=== PATIENT | male | born 1960 | race Caucasian/White ===

== ENCOUNTER 2018-01-11 18:40 | Emergency (ER) | payer MEDICARE, MEDICAID ==
[2018-01-11] MEDS ORDERED: Polymyx/Trimethoprim OPTH* 10 ML BTL BOTH EYES ONE (21:19)
--- NOTE | 2018-01-11 21:25 | UC ---
Eye Complaint HPI - HPI Summary HPI Summary: Bilateral eye redness and clear drainage ---customer care voice consultant that is with patient is unsure of time of onset - History of Current Complaint Stated Complaint: BILATERAL EYE ISSUE Time Seen by Provider: 01/11/18 20:58 Hx Obtained From: Patient, Family/Kinder Teacher Timing: Constant Severity Currently: Mild Location of Injury: Conjunctiva Associated Signs And Symptoms: Positive: Drainage (Clear) - Allergies/Home Medications Allergies/Adverse Reactions: Allergies Allergy/AdvReac Type Severity Reaction Status Date / Time No Known Allergies Allergy Verified 01/11/18 21:02 Home Medications: Home Medications Benztropine TAB* [Cogentin TAB*] 1 mg PO BID 01/11/18 [History Confirmed ] Divalproex Sodium [Depakote] 250 mg PO BID 01/11/18 [History Confirmed 01/11/18] Loperamide CAP* [Imodium CAP*] 0 mg PO SEE INSTRUCTIONS PRN 01/11/18 [History Confirmed 01/11/18] Loratadine 10 mg PO DAILY 01/11/18 [History Confirmed 01/11/18] Quetiapine Fumarate [Quetiapine 100 mg] 100 mg PO BEDTIME 01/11/18 [History Confirmed 01/11/18] PMH/Surg Hx/FS Hx/Imm Hx Previously Healthy: No GI/ History: Gastroesophageal Reflux Psychological History: Schizophrenia - Surgical History Surgical History: Yes Surgery Procedure, Year, and Place: Root canal - Family History Known Family History: Positive: Unknown - pt has MR and pyschiatric issues- unsure of his FHx - Social History Occupation: Disabled Lives: Long-Term Alcohol Use: None Substance Use Type: None Smoking Status (MU): Never Smoked Tobacco - Immunization History Most Recent Influenza Vaccination: 05/2015 Review of Systems Constitutional: Negative Skin: Negative Eyes: Negative, Eye Redness ENT: Negative Respiratory: Negative Cardiovascular: Negative Gastrointestinal: Negative Genitourinary: Negative Motor: Negative Neurovascular: Negative Musculoskeletal: Negative Neurological: Negative Psychological: Negative Is Patient Immunocompromised?: No All Other Systems Reviewed And Are Negative: Yes Physical Exam Triage Information Reviewed: Yes Appearance: No Pain Distress, Well-Nourished, Ill-Appearing - appears older than stated age Vital Signs Reviewed: Yes Eye Exam: Normal Eyes: Positive: Conjunctiva Inflamed, Discharge ENT Exam: Normal ENT: Positive: Normal ENT inspection, Hearing grossly normal. Negative: Nasal congestion, Trismus, Muffled voice, Hoarse voice Dental Exam: Normal Neck exam: Normal Neck: Positive: Supple, Nontender Respiratory Exam: Normal Respiratory: Positive: Chest non-tender, No respiratory distress, No accessory muscle use Cardiovascular Exam: Normal Cardiovascular: Positive: RRR, Pulses Normal, Brisk Capillary Refill Musculoskeletal Exam: Normal Musculoskeletal: Positive: Strength Intact, ROM Intact, No Edema Neurological Exam: Normal Neurological: Positive: Alert, Muscle Tone Normal Psychological Exam: Normal Skin Exam: Normal Eye Complaint Course/Dx - Course Course Of Treatment: eye drops for 5 days, recheck prn - Differential Dx/Diagnosis Provider Diagnoses: bilateral conjuctivitis Discharge - Sign-Out/Discharge Documenting (check all that apply): Discharge/Admit/Transfer - Discharge Plan Condition: Stable Disposition: HOME Patient Education Materials: How to Use Eye Drops (ED), Conjunctivitis (ED) Referrals: Iain Wei PA [Primary Care Provider] - If Needed (Rnot resolved in 5 days or worsens in any way) - Billing Disposition and Condition Condition: STABLE Disposition: Home
[2018-01-11 21:29] VITALS: BP 115/70
== END 2018-01-11 21:45 | disposition home or self-care (01) ==
LOC: UCCORT 18:40
DX: H10.33 Unspecified acute conjunctivitis, bilateral (principal); K21.9 Gastro-esophageal reflux disease without esophagitis; F79 Unspecified intellectual disabilities; F20.9 Schizophrenia, unspecified
CPT/HCPCS: 99212; G0463

== ENCOUNTER 2019-10-07 11:52 | Emergency (ER) | payer MEDICAID, MEDICARE ==
--- OUTSIDE RECORDS SUMMARY | 2019-10-07 13:05 | XMS REPORT | Summary of Care ---
:1960 Author Organization [facility] Address [address] [place] [address] Care Team Providers Name Role Phone Tyler Wei Primary Care Provider Reason for Visit Reason Comments Discharge Follow-up s/p SIGMOID RESECTION Encounter Details Date Type Department Care Team Description 09/30/2019 Office Visit [facility] Car Singh MD Volvulus (Primary Dx) [address] [facility] [address] [facility] [address] Level [address] [facility] Room [address] [place] [id number] [phone] Allergies Active Allergy Reactions Severity Noted Date Comments Other 07/20/2014 peanuts documented as of this encounter (statuses as of 10/04/2019) Medications Medication Sig Dispensed Refills Start Date End Date Status carbidopa-levodopa Take 0.5 tablets by 0 Active (SINEMET) 25-100 MG mouth Four times per tablet daily At 0600, 1000, 1500, 2000 lorazepam (ATIVAN) Take 0.5 mg by 0 Active 0.5 MG tablet mouth Four times daily omeprazole (PRILOSEC) Take 20 mg by mouth 0 Active 20 MG capsule daily. Sennosides (SENNA) Take 2 tablets by 0 Active 8.6 MG TABS tablet mouth nightly. Misc. Devices Use as directed. Rolling walker 1 each 0 10/27/2015 Active (DURABLE MEDICAL EQUIPMENT SEE SIG) DX: R26 MISC S80.0 polyethylene glycol Take 17 g by mouth 0 Active (MIRALAX) packet daily. levocetirizine Take 5 mg by mouth 0 Active (XYZAL) 5 MG tablet every evening. divalproex (DEPAKOTE) Take 1 tablet by 60 tablet 0 12/15/2015 Active 250 MG EC tablet mouth Two times daily before meals. Benztropine Mesylate Take 1 mg by mouth 0 Active 1 MG Oral Tablet Two Times Daily (COGENTIN) QUEtiapine Fumarate Take 50 mg by mouth 0 Active 50 MG Oral Tablet Two Times Daily (SEROquel) QUEtiapine Fumarate Take 100 mg by 0 Active 100 MG Oral Tablet mouth nightly (SEROquel) Famotidine 20 MG Oral Take 20 mg by mouth 0 Active Tablet (PEPCID) Two Times Daily Acetaminophen 500 MG Take 1,000 mg by 0 Active Oral Tablet (TYLENOL) mouth every 6 (six) hours as needed for Pain Ibuprofen 800 MG Oral Take 800 mg by 0 Active Tablet (ADVIL,MOTRIN) mouth every 6 (six) hours as needed for Pain guaiFENesin 100 Take 200 mg by 0 Active MG/5ML Oral Syrup mouth every 4 (ROBITUSSIN) (four) hours as needed for Cough Alum & Mag Take 5 mLs by mouth 0 Active Hydroxide-Simeth every 4 (four) 200-200-20 MG/5ML hours as needed Oral Suspension Doxepin HCl 25 MG Take 25 mg by mouth 0 Active Oral Capsule nightly (SINEQUAN) Magnesium Hydroxide Take 30 mLs by 0 Active 400 MG/5ML Oral mouth every 3 Suspension (MILK OF (three) days as MAGNESIA) needed for Constipation Loperamide HCl 1 Take 6 mg by mouth 0 Active MG/5ML Oral Liquid daily as needed (IMODIUM) for DiarrheaMay give an addition 15ML for each loose stool to follow. Maximum Daily Dose = 60ML Desloratadine 5 MG Take 5 mg by mouth 0 Active Oral Tablet daily (CLARINEX) Aspirin 81 MG Oral Take 81 mg by mouth 0 Active Tablet Delayed daily Release Chlorhexidine Use as directed 15 0 Active Gluconate 0.12 % mLs in the mouth or Mouth/Throat Solution throat daily (PERIDEX) Docusate Sodium 100 Take 100 mg by 0 Active MG Oral Capsule mouth Two Times (COLACE) Daily documented as of this encounter (statuses as of 10/04/2019) Active Problems Problem Noted Date Volvulus 09/13/2019 documented as of this encounter (statuses as of 10/04/2019) Social History Tobacco Use Types Packs/Day Years Used Date Never Smoker Smokeless Tobacco: Never Used Alcohol Use Drinks/Week oz/Week Comments No Sex Assigned at Date Recorded Not on file Job Start Date Occupation Industry Not on file Not on file Not on file Travel History Travel Start Travel End No recent travel history available. documented as of this encounter Last Filed Vital Signs Vital Sign Reading Time Taken Comments Blood Pressure 101/67 09/30/2019 9:13 AM EST Pulse 92 09/30/2019 9:13 AM EST Temperature 36.8 09/30/2019 9:13 AM C (98.3 EST F) Respiratory Rate 18 09/30/2019 9:13 AM EST Oxygen Saturation 94% 09/30/2019 9:13 AM EST Inhaled Oxygen Concentration - - Weight 72.9 kg (160 lb 12.8 oz) 09/30/2019 9:13 AM EST Height 179.1 cm (5' 10.5") 09/30/2019 9:13 AM EST Body Mass Index 22.75 09/30/2019 9:13 AM EST documented in this encounter Progress Notes Car Singh MD - 09/30/2019 8:45 AM ESTSee resident's note for details. I saw and evaluated the patient with the resident and agree with the resident's findings and plan as documented in the residents note. Claudia Figueroa MD - 09/30/2019 8:45 AM EST Subjective: Patient ID: Epifanio Navarro is a 58 y.o. male with history of schizophrenia now s/ p sigmoid resection for sigmoid volvulus 09/14/19. Patient states he has been doing well. He denies fever, chills, shortness of breath, chest pain, nausea, vomiting. He states he is eating well. He denies changes in bowel orbladder habits. HPI Epifanio has a past medical history of Aphagia, Constipation, Explosive personality disorder, and Schizophrenia. Epifanio has Volvulus on their problem list. Epifanio has a past surgical history that includes pr colonoscopy flx dx w/collj spec when pfrmd (N/A, 09/13/2019). His family history is not on file. Epifanio reports that he has never smoked. He has never used smokeless tobacco. He reports that he doesnot drink alcohol or use drugs. Epifanio has a current medication list which includes the following prescription(s) : acetaminophen, alum& mag hydroxide-simeth, aspirin, benztropine, carbidopa -levodopa, chlorhexidine, divalproex, docusate sodium, doxepin, famotidine, guaifenesin, ibuprofen, levocetirizine, loperamide, lorazepam, durable medical equipment see sig, polyethylene glycol, quetiapine, senna, desloratadine, magnesium hydroxide, omeprazole, and quetiapine. Epifanio is allergic to other. Review of Systems Constitutional: Negative for activity change, appetite change, chills, diaphoresis, fatigue, fever and unexpected weight change. HENT: Negative for trouble swallowing and voice change. Eyes: Negative for visual disturbance. Respiratory: Negative for cough and shortness of breath. Cardiovascular: Negative for chest pain. Gastrointestinal: Negative for abdominal distention, abdominal pain, constipation, diarrhea, nausea and vomiting. Genitourinary: Negative for decreased urine volume and difficulty urinating. Skin: Negative for wound. Neurological: Negative for dizziness and weakness. Objective: Vitals: 09/30/19 0913 BP: 101/67 Pulse: 92 Resp: 18 Temp: 36.8 C (98.3 F) SpO2: 94% Physical Exam Vitals signs and nursing note reviewed. Constitutional: General: He is not in acute distress. Appearance: Normal appearance. He is normal weight. He is not ill-appearing, toxic-appearing or diaphoretic. HENT: Head: Normocephalic and atraumatic. Nose: Nose normal. Mouth/Throat: Mouth: Mucous membranes are moist. Pharynx: Oropharynx is clear. Eyes: Extraocular Movements: Extraocular movements intact. Conjunctiva/sclera: Conjunctivae normal. Pupils: Pupils are equal, round, and reactive to light. Neck: Musculoskeletal: Normal range of motion and neck supple. Cardiovascular: Rate and Rhythm: Normal rate and regular rhythm. Pulmonary: Effort: Pulmonary effort is normal. No respiratory distress. Abdominal: General: Abdomen is flat. Bowel sounds are normal. There is no distension. Palpations: There is no mass. Tenderness: There is no abdominal tenderness. There is no guarding or rebound. Hernia: No hernia is present. Musculoskeletal: Normal range of motion. Skin: General: Skin is warm and dry. Neurological: General: No focal deficit present. Mental Status: He is alert. Mental status is at baseline. Psychiatric: Mood and Affect: Mood normal. Pathology: COLON, SIGMOID, EXCISION: FOCAL TRANSMURAL HEMORRHAGE AND CHRONIC INFLAMMATION, CONSISTENT WITH VOLVULUS. MARGINS VIABLE. LYMPH NODES (8), PERICOLONIC, EXCISION: NO SIGNIFICANT PATHOLOGIC CHANGES. Assessment: Epifanio Navarro is a 58 y.o. male with schizophrenia now s/p sigmoid resection due to sigmoid volvulus on 09/14/19, doing well Plan: Diogenes removed at visit Will plan for colonoscopy in 2 months. Prep (GoLytely) prior to colonoscopy Patient seen and discussed with Dr. Samantha Smart M.D. PGY-3 | Department of Surgery [phone] documented in this encounter Plan of Treatment Health Maintenance Due Date Last Done Comments Hepatitis C Screening (B. 1960 [id number]) MMR Vaccines (1 of 1 - 1961 Standard series) Varicella Vaccines (1 of 2 - 1961 2-dose childhood series) DTaP,Tdap,and Td Vaccines (1 1969 - Tdap) HIV Screening 1975 Influenza Vaccine 05/21/2019 Pneumococcal Vaccine: 65+ 2027 Years (1 of 2 - PCV13) Colon Cancer Screening 10 yrs 09/13/2029 09/13/2019, 09/13/2019 HIB Vaccines Aged Out No longer eligible based on patient's age to complete this topic Hepatitis A Vaccines Aged Out No longer eligible based on patient's age to complete this topic Hepatitis B Vaccines Aged Out No longer eligible based on patient's age to complete this topic IPV Vaccines Aged Out No longer eligible based on patient's age to complete this topic Pneumococcal Vaccine: Aged Out No longer eligible based Pediatrics (0 to 5 Years) and on patient's age to At-Risk Patients (6 to 64 complete this topic Years) documented as of this encounter Results Not on filedocumented in this encounter Visit Diagnoses Diagnosis Volvulus - Primary documented in this encounter
--- OUTSIDE RECORDS SUMMARY | 2019-10-07 13:05 | XMS REPORT | Summary of Care ---
:1960 Author Organization [facility] Address [address] [place] [address] Care Team Providers Name Role Phone Tyler Wei Primary Care Provider Reason for Visit Auth/Cert Status Reason Specialty Diagnoses / Procedures Referred By Contact Referred To Contact Diagnoses Sigmoid volvulus needing colonic decompression. Volvulus Encounter Details Date Type Department Care Team Description 09/13/2019 - Hospital Encounter [id number] SURGERY/TRAUMA Sebastian Kimbrough MD [address] [facility] 2nd Floor [place], [place] [id number] 09/16/2019 Jac Coy MD [address] [place] [address] [address] [place] [address] Allergies Active Allergy Reactions Severity Noted Date Comments Other 07/20/2014 peanuts documented as of this encounter (statuses as of 09/16/2019) Medications Medication Sig Dispensed Refills Start End Date Status Date carbidopa-levodopa Take 0.5 tablets 0 Active (SINEMET) 25-100 by mouth Four MG per tablet times daily At 0600, 1000, 1500, 2000 lorazepam (ATIVAN) Take 0.5 mg by 0 Active 0.5 MG tablet mouth Four times daily omeprazole Take 20 mg by 0 Active (PRILOSEC) 20 MG mouth daily. capsule Sennosides (SENNA) Take 2 tablets 0 Active 8.6 MG TABS tablet by mouth nightly. Misc. Devices Use as directed. Rolling walker 1 each 0 Active (DURABLE MEDICAL 6 EQUIPMENT SEE SIG) DX: R26 MISC S80.0 polyethylene Take 17 g by 0 Active glycol (MIRALAX) mouth daily. packet levocetirizine Take 5 mg by 0 Active (XYZAL) 5 MG mouth every tablet evening. divalproex Take 1 tablet by 60 tablet 0 Active (DEPAKOTE) 250 MG mouth Two times 6 EC tablet daily before meals. Benztropine Take 1 mg by 0 Active Mesylate 1 MG Oral mouth Two Times Tablet (COGENTIN) Daily QUEtiapine Take 50 mg by 0 Active Fumarate 50 MG mouth Two Times Oral Tablet Daily (SEROquel) QUEtiapine Take 100 mg by 0 Active Fumarate 100 MG mouth nightly Oral Tablet (SEROquel) Famotidine 20 MG Take 20 mg by 0 Active Oral Tablet mouth Two Times (PEPCID) Daily Acetaminophen 500 Take 1,000 mg by 0 Active MG Oral Tablet mouth every 6 (TYLENOL) (six) hours as needed for Pain Ibuprofen 800 MG Take 800 mg by 0 Active Oral Tablet mouth every 6 (ADVIL,MOTRIN) (six) hours as needed for Pain guaiFENesin 100 Take 200 mg by 0 Active MG/5ML Oral Syrup mouth every 4 (ROBITUSSIN) (four) hours as needed for Cough Alum & Mag Take 5 mLs by 0 Active Hydroxide-Simeth mouth every 4 200-200-20 MG/5ML (four) hours as Oral Suspension needed Doxepin HCl 25 MG Take 25 mg by 0 Active Oral Capsule mouth nightly (SINEQUAN) Magnesium Take 30 mLs by 0 Active Hydroxide 400 mouth every 3 MG/5ML Oral (three) days as Suspension (MILK needed for OF MAGNESIA) Constipation Loperamide HCl 1 Take 6 mg by 0 Active MG/5ML Oral Liquid mouth daily as (IMODIUM) needed for DiarrheaMay give an addition 15ML for each loose stool to follow. Maximum Daily Dose = 60ML Desloratadine 5 MG Take 5 mg by 0 Active Oral Tablet mouth daily (CLARINEX) Aspirin 81 MG Oral Take 81 mg by 0 Active Tablet Delayed mouth daily Release Chlorhexidine Use as directed 0 Active Gluconate 0.12 % 15 mLs in the Mouth/Throat mouth or throat Solution (PERIDEX) daily Docusate Sodium Take 100 mg by 0 Active 100 MG Oral mouth Two Times Capsule (COLACE) Daily quetiapine Take 300 mg by 0 09/13/19 Discontinued (SEROQUEL) 200 MG mouth every 20 (Medication tablet evening. Reconcilation) lurasidone HCl Take 60 mg by 0 09/13/19 Discontinued (LATUDA) 40 MG mouth daily. 20 (Medication tablet Reconcilation) loratadine Take 10 mg by 0 09/13/19 Discontinued (CLARITIN) 10 MG mouth daily. 20 (Medication tablet Reconcilation) benztropine Take 1/2 tablet 60 tablet 0 09/13/19 Discontinued (COGENTIN) 1 MG PO in AM and 1 6 20 (Medication tablet tablet in PM for Reconcilation) 1 week. Then take 1 tablet in AM and PM. documented as of this encounter (statuses as of 09/16/2019) Active Problems Problem Noted Date Volvulus 09/13/2019 documented as of this encounter (statuses as of 09/16/2019) Social History Tobacco Use Types Packs/Day Years [...] Sign Reading Time Taken Comments Blood Pressure 109/71 09/16/2019 11:36 AM EST Pulse 104 09/16/2019 11:36 AM EST Temperature 36.9 09/16/2019 11:36 AM EST C (98.4 F) Respiratory Rate 18 09/16/2019 11:36 AM EST Oxygen Saturation 93% 09/16/2019 11:36 AM EST Inhaled Oxygen Concentration - - Weight - - Height - - Body Mass Index - - documented in this encounter Discharge Summaries Jac Coy MD - 09/16/2019 9:06 AM EST Discharge Summary Patient Epifanio Navarro Admit Date 09/13/2019 1960 Discharge Date 09/16/2019 PCP Iain Wei PA Discharge Physician Jac Coy MD Primary Discharge Diagnosis: Sigmoid volvulus Secondary Discharge Diagnosis: Volvulus Personality Disorder Wernicke's Aphasia History & Hospital Course Reason for Admission: Abdominal pain Brief history and Hospital Course: Patient was admitted to medicine for a sigmoid volvulus. GI tookpatient to endoscopy and reduced the volvulus. Patient then take to OR by surgery for sigmoid resection. Patient tolerated both procedures very well without complications. Patient now eating and drinking without difficulty. Patient is having bowel movements. He does not have any complaint of pain. Surgery saw this morning and agree patient can be discharged to follow up. Wound care instructions from surgery to be placed. Otherwise patient was continued on his outpatient medications without changes when able to take oral. Patient in stable condition for discharge. Consults: Gastroenterology, Surgery Relevant studies done during this hospitalization: 09/13/2019: Abdominal xray, per radiology, "Dilated loop of sigmoid colon with loss of the haustral folds measuring up to 9.0 cm. This is compatible with history of sigmoid volvulus." 09/13/2019: Abdominal xray, per radiology, "1. Decreased distention of the dilated loop of bowel within the right side of the abdomen since the prior examination. 2. No evidence of recurrence of the sigmoid volvulus." Laboratory Data (Most Recent in Past 3 Days) Lab 09/14/19 0406 09/15/19 0424 09/16/19 0334 WBC 9.5 10.4* 10.9* HGB 12.2* 10.9* 10.9* MCV 91.9 89.0 87.8 PLT 221 199 223 Invalid input(s): BILDIR Lab 09/14/19 0406 09/15/19 0424 09/16/19 0334 NA 143 144 140 K 3.6 3.0* 3.6 CL 105 103 106 BICARBONATE 21* 19* 24 GLUCOSE 66* 65* 106 BUN 11 7 6 CREATININE 0.41* 0.42* 0.32* Discharge Medications Discharge Medications: Medication List Discharge Medications Sig/Dispense acetaminophen 500 MG tablet Commonly known as: TYLENOL Si,000 mg, Oral, Every 6 hours PRN aspirin 81 MG EC tablet Si mg, Oral, Daily Standard benztropine 1 MG tablet Commonly known as: COGENTIN Si mg, Oral, 2 Times Daily carbidopa-levodopa 25-100 MG per tablet Commonly known as: SINEMET Si.5 tablets, Oral, Four Times Daily Standard, At 0600, 1000, 1500, 2000 chlorhexidine 0.12 % solution Commonly known as: PERIDEX Si mLs, Mouth/Throat, Daily Standard desloratadine 5 MG tablet Commonly known as: CLARINEX Si mg, Oral, Daily Standard divalproex 250 MG EC tablet Commonly known as: DEPAKOTE Si mg, Oral, Two times daily before breakfast and dinner Dispense: 60 tablet docusate sodium 100 MG capsule Commonly known as: COLACE Si mg, Oral, 2 Times Daily doxepin 25 MG capsule Commonly known as: SINEQUAN Si mg, Oral, Nightly Durable Medical Equipment see sig Misc Sig: Rolling walker DX: R26 S80.0 Dispense: 1 each famotidine 20 MG tablet Commonly known as: PEPCID Si mg, Oral, 2 Times Daily guaifenesin 100 MG/5ML syrup Commonly known as: ROBITUSSIN Si mg, Oral, Every 4 hours PRN ibuprofen 800 MG tablet Commonly known as: ADVIL,MOTRIN Si mg, Oral, Every 6 hours PRN levocetirizine 5 MG tablet Commonly known as: XYZAL Si mg, Oral, Every evening loperamide 1 MG/5ML solution Commonly known as: IMODIUM Si mg, Oral, Daily PRN, May give an addition 15ML for each loose stool to follow. Maximum Daily Dose = 60ML LORazepam 0.5 MG tablet Commonly known as: ATIVAN Si.5 mg, Oral, Four Times Daily Standard magnesium hydroxide 400 MG/5ML suspension Commonly known as: MILK OF MAGNESIA Si mLs, Oral, Every 72 hours PRN MYLANTA 200-200-20 MG/5ML suspension Generic drug: Alum & Mag Hydroxide-Simeth Si mLs, Oral, Every 4 hours PRN omeprazole 20 MG capsule Commonly known as: PriLOSEC Si mg, Oral, Daily Standard polyethylene glycol packet Commonly known as: MIRALAX Si g, Oral, Daily Standard QUEtiapine 50 MG tablet Commonly known as: SEROquel Si mg, Oral, 2 Times Daily QUEtiapine 100 MG tablet Commonly known as: SEROquel Si mg, Oral, Nightly senna 8.6 MG Tabs tablet Si tablets, Oral, Nightly Allergies:Other Medications, including new medication and medication changes, were discussed with patient and/or family prior to discharge. Follow Up Appointments & Patient Instructions Future Appointments Date Time Provider Department Center 09/30/2019 8:45 AM Car Singh MD [facility] None Discharge planning was discussed with the patient and/or family. Please see discharge instructions provided to the patient OR After-Visit summary on file for additional information. Discharge Recommendations & Disposition Communication/Instructions to the PCP: Yes Pending labs/ tests done in hospital and still need to be followed up after discharge: None Follow-up with PCP: 1 week Referrals: General Surgery Disposition: The patient was hemodynamically stable at the time of discharge. Discharge to: Nursing Home Diet: regular diet Activity: activity as tolerated Code Status: Full Code Condition Upon Discharge: Cognitive: Alert, expressive aphasia (chronic) Functional: Independent Social Supports: Community Signature:Jac Coy MD Date/Time: September 16, 2019 9:06 AM documented in this encounter Discharge Instructions Discharge Instr - Other Jennifer Ayala MD - 09/16/2019 8:56 AM EST Discharge Instructions: Caring for Your Wound Taking proper care of your wound will help it heal. Your healthcare provider or nurse may show you specifically how to clean and dress the wound and how to tell if the wound is healing normally. This sheet will help you remember those guidelines when you are at home. Getting ready Put pets and children in another room, away from your work area. Wash your hands before touching any of your supplies: ? Turn on the water. ? Wet your hands and wrists. ? Use liquid soap from a pump dispenser. Work up a lather. ? Scrub your hands thoroughly. ? Rinse your hands with your fingers pointing toward the drain. ? Dry your hands with a clean cloth or paper towel. Use this towel to turn off the faucet. ? Remember, once you have washed your hands, dont touch anything other than your supplies. Wash your hands again if you touch anything, like furniture or your clothes. Clean your work area: ? Clean washable surfaces with soap and water, and dry with a clean cloth or paper towel. ? Wipe surfaces that are not washable (like fabric or wood) so that they are free of dust.Spreada clean cloth or paper towel over your work surface. ? Move away from the clean surface, if you need to cough or sneeze. Gather your bandage supplies: ? Gauze dressing or other bandage material ? Medical tape ? Disposable gloves Wash your hands again. Dressing the wound Remove the old dressing: ? Put on disposable gloves if youre dressing a wound for someone else or if your wound is infected. ? Pull gently toward the wound to loosen the tape. ? One layer at a time, gently remove the dressing. ? If you have a drain or tube, be careful not to pull on it. ? Look at the dressing. Make sure that you are seeing a decreasing amount of blood, and that the blood is turning into a clear, melecio fluid. ? If your wound has stitches, look for looseones. ? Put the dressing in a plastic bag. Then remove your gloves. Inspect the wound. Look for signs that it isn't healing normally. A wound that isnt healing properly may be dark in color or have white streaks. Dress the wound daily: ? Wash your hands again. ? Clean and dress the wound as you were shown by your healthcare provider or nurse. ? 4x4 gauze, abdominal pad and tape ? Ifyoure dressing a wound for someone else or if your wound is infected, put on a new pair of disposable gloves. ? If you have a drain or tube, be careful not to pull on it. Discard any used materials or trash in a sealed plastic bag before placing in a trash can. Follow-up Make a follow-up appointment, or as directed by your healthcare provider. When to call your healthcare provider Call your healthcare provider right away if you have any of the following: Shaking chills or fever above 100.4F (38C) Bleeding that soaks the dressing Stitches that are pulling away from the wound or pulling apart [place] fluid weeping from the wound Increased drainage from the wound or drainage that is yellow, yellow-green , or smelly Increased swelling, pain, or redness in the skin around the wound A change in the color or sizeof the wound Increased fatigue Loss of appetite Date Last Reviewed: 02/18/201719999650-1852 [employer]. [address] [place] [address], [place] [address]. All rights reserved. This information is not intended as a substitute for professional medical care. Always follow your healthcare professional's instructions. documented in this encounter Progress Notes Carola Duarte RN - 09/16/2019 12:54 PM ESTPt discharged back to long term with aide. Discharge instructions, medication list and follow-up appointments gone over with pt and aide and signed. All questions answered. Pt sent with supplies for dressing changes. PIV access removed, site is CDI. Pt properly dressed for discharge and all belongings sent including own gait belt and Bible. Raheem Wilder MD - 09/15/2019 12:36 PM EST Internal Medicine Inpatient Progress Note Subjective Patient seen and examined at bedside. No acute events overnight. States he is in no pain. States he is not passing gas or had a BM. Denied nausea, or fever. Review of Systems Constitutional: Negative for chills and fever. HENT: Negative for sore throat and trouble swallowing. Eyes: Negative for pain and redness. Respiratory: Negative for chest tightness and shortness of breath. Cardiovascular: Negative for chest pain, palpitations and leg swelling. Gastrointestinal: Negative for abdominal distention, abdominal pain and nausea. Genitourinary: Negative for difficulty urinating, dysuria and hematuria. Skin: Negative for color change and rash. Neurological: Negative for dizziness, weakness and headaches. Objective Temp: [36.2 C-36.9 C] 36.8 C Pulse: [77-97] 87 Resp: [12-18] 15 BP: (92-157)/(49-77) 112/62 SpO2: [92 %-100 %] 93 % O2 Therapy: Room air O2 Flow Rate (L/min): [2 L/min-12 L/min] 2 L/min Intake/Output Summary (Last 24 hours) at 09/15/2019 1236 Last data filed at 09/15/2019 1200 Gross per 24 hour Intake 3863.62 ml Output 2700 ml Net 1163.62 ml I/O last 3 completed shifts: In: 4045.2 [P.O.:840; I.V.:2885.2; Other:20; IV Piggyback:300] Out: 2250 [Urine:2200; Blood:50] I/O this shift: In: 1118.4 [P.O.:180; I.V.:372.2; IV Piggyback:566.2] Out: 450 [Urine:450] Last bowel movement: "several days ago Physical Exam HENT: Nose: Nose normal. Mouth/Throat: Mucous membranes are moist. Oropharynx is clear. Cardiovascular: Normal rate, regular rhythm and normal pulses. Exam reveals no gallop. No murmur heard. Pulmonary/Chest: Effort normal and breath sounds normal. No respiratory distress. He has no wheezes.He has no rales. Abdominal: Bowel sounds are normal. He exhibits no distension and no mass. Wound vac over lower abdomen. No output in collection reservoir. Bandage clean and dry. Musculoskeletal: Right lower leg: No edema. Left lower leg: No edema. Neurological: He is alert. Skin: Skin is warm and dry. Lines, Tubes, Monitors & Restraints Description Still Required? Comments PIV X Yes [] No Total Days of Anti-infective Therapy: 3 Anti-infectives (From admission, onward) Start Dose/Rate Route Frequency Ordered Stop 09/13/19 0330 metroNIDAZOLE (FLAGYL) IVPB 500 mg 500 mg 100 mL/hr over 60 Minutes Intravenous Every 8 hours 09/13/19 0329 09/20/19 0444 09/13/19 0330 ciprofloxacin in D5W (CIPRO) IVPB 200 mg 200 mg 100 mL/hr over 60 Minutes Intravenous Every 12 hours 09/13/19 0329 09/16/19 0444 Laboratory Data (Most Recent in Past 3 Days) Lab 09/13/19 0239 09/14/19 0406 09/15/19 0424 WBC 13.4* 9.5 10.4* HGB 13.4* 12.2* 10.9* HCT 38.8* 36.3* 30.9* MCV 88.7 91.9 89.0 PLT 267 221 199 Lab 09/13/19 0612 09/14/19 0406 09/15/19 0424 NA 139 143 144 K 3.6 3.6 3.0* CL 102 105 103 BICARBONATE 23 21* 19* GLUCOSE 122 66* 65* BUN 12 11 7 CREATININE 0.41* 0.41* 0.42* Lab 09/15/19 0424 CALCIUM 7.3* Lab 09/13/19 0239 09/14/19 0406 09/15/19 0424 NEUTOPHILPCT 81 76 78 LYMPHOPCT 10 14 12 MONOPCT 8 7 8 EOSPCT 1 2 2 Lab 09/13/19 0239 PROT 6.4 ALBUMIN 3.6 AST 26 ALT 22 TBILI 0.4 ALKPHOS 71 Lab 09/13/19 0239 INR 1.09 No new imaging Assessment/Plan Mr. Epifanio Navarro is a 58 y.o. male with a past medical history significant for schizophrenia, personality disorder, and Wernicke's aphasia who presented to [facility] with c/o abdominal pain. CT absignificant for sigmoid volvulus. S/t sigmoidectomy 09/14. #Sigmoid Volvulus -present on admission -CT ab significant for: dilated colon with large amount of fluid and debris throughout the colon with an abrupt transition in the region of the sigmoid colon consistent with sigmoid volvulus -will obtain labs, trend lactic acid q4h -c/w cipro + metronidazole - GI decompressed on 09/13 - surgery did sigmoidectomy with primary anastomosis 09/14 - gabapentin and tylenol for pain - will contact surgery concerning when to restart diet. #Personality Disorder -present on admission -pt has documented hx of agression -c/w depakote, quetiapine #Wernicke's Aphasia -present at baseline -A&O x 1 -will continue with thiamine 250 mg x 5 days DVT Prophylaxis: low molecular weight heparin GI Prophylaxis: Not Indicated Functional Status: moderately impaired Code Status: Full Code Disposition: Plan discharge to: Nursing Home Estimated Discharge Date: tbd The patient was discussed with Jac Coy MD who agrees with the assessment and plan as noted above. Signature: Raheem Martinez MD Date/Time: September 15, 2019 12:36 PM Associated attestation - Jac Coy MD - 09/15/2019 4:49 PM ESTAttending Addendum: I personally interviewed, examined, and completely evaluated the patient and agree with the clinicalfindings and have discussed the plan for Epifanio Navarro with the resident. I have reviewed their note andagree with the findings and plan as documented for Epifanio Navarro. Overall amount of data reviewed, levelof risk, complexity and medical decision making is: low. Awaiting surgical recommendations regarding further care. Jac Coy MD Department of Medicine 09/15/2019 4:49 PM Elvie Sam, - 09/14/2019 8:00 PM EST Surgery Post Op Check S: Patient awake and alert in bed. Denies any pain. Ambulating: - Voiding: mcmanus in place Flatus: - BM:- Tolerating PO: NPO Pain Control:+ ROS: Fevers: - Chills:- Nausea:- Vomiting:- Chest Pain:- Shortness of Breath:- Abdominal Pain:- O: Visit Vitals BP 111/67 (BP Location: Right arm, Patient Position: Sitting) Pulse 95 Temp 36.9 C (Oral) Resp 16 SpO2 93% General: NAD AOx4 Heart: RRR no MRG Lungs: CTAB Abdomen: soft/ non tender/ non distended +Bowel sounds. Prevena in place to suction, c/d/i. Extremities warm well perfused, no clubbing cyanosis edema Labs: CBC: Lab Results Component Value Date WBC 9.5 09/14/2019 RBC 3.95 (L) 09/14/2019 HGB 12.2 (L) 09/14/2019 HCT 36.3 (L) 09/14/2019 PLT 221 09/14/2019 BMP: Lab Results Component Value Date NA 143 09/14/2019 K 3.6 09/14/2019 CL 105 09/14/2019 BICARBONATE 21 (L) 09/14/2019 GLUCOSE 66 (L) 09/14/2019 BUN 11 09/14/2019 CREATININE 0.41 (L) 09/14/2019 BCR 28 09/14/2019 GFRAA >90 09/14/2019 GFRNONAA >90 09/14/2019 A: Epifanio Navarro is a 58 y.o. male with sigmoid volvulus s/p sigmoid resection and primary anastomosis POD # 0 doing well P: 1. Pain control: gabapentin, tylenol 2. ERAS Post Op Care Elvie Sam PGY-1 Manuel Hammonds MD PGY-I Jac Rosales MD - 09/14/2019 3:03 PM EST Internal Medicine Inpatient Progress Note Subjective Patient seen and examined, chart reviewed. Doing well, no acute issues overnight. Surgery planning for OR today. Patient is pleasant and seems comfortable but has expressive aphasia at baseline. Review of Systems Unable to perform ROS: Other (Wernike's. Patient denies all complaints but inconsistent.) Objective Temp: [36.3 C-36.9 C] 36.9 C Pulse: [68-99] 68 Resp: [16-17] 16 BP: (126-150)/(68-88) 150/74 SpO2: [95 %-100 %] 100 % O2 Therapy: Oxygen O2 Flow Rate (L/min): [4 L/min] 4 L/min Intake/Output Summary (Last 24 hours) at 09/14/2019 1503 Last data filed at 09/14/2019 1423 Gross per 24 hour Intake 6412.16 ml Output 1250 ml Net 5162.16 ml I/O last 3 completed shifts: In: 6412.2 [P.O.:2960; I.V.:3030; Other:40; IV Piggyback:382.2] Out: 1250 [Urine:1250] No intake/output data recorded. Last bowel movement: Today. Physical Exam Constitutional: Non-toxic appearance. He appears ill. No distress. Pt laying in bed, NAD. Aphasic at baseline but able to answer some questions. HENT: Head: Normocephalic and atraumatic. Nose: No rhinorrhea or congestion. Mouth/Throat: Mucous membranes are moist. No posterior oropharyngeal erythema. Oropharynx is clear. Eyes: No scleral icterus. Cardiovascular: Regular rhythm and normal heart sounds. Tachycardia present. Exam reveals no friction rub. No murmur heard. Pulmonary/Chest: Effort normal. No respiratory distress. He has no wheezes. He has no rhonchi. He has no rales. He exhibits no tenderness. Abdominal: Normal appearance. He exhibits distension (Mild.). He exhibits no mass. There is abdominal tenderness (Improved.). There is no rebound and no guarding. Diminished bowel sounds Musculoskeletal: General: No tenderness. Right lower leg: No edema. Left lower leg: No edema. Neurological: He is alert. Pt is A&O x 1 Skin: Skin is warm. No lesion and no rash noted. He is not diaphoretic. No jaundice. Psychiatric: His behavior is normal. Mood normal. Lines, Tubes, Monitors & Restraints Description Still Required? Comments PIV [] Yes [] No Mcmanus [] Yes [] No Total Days of Anti-infective Therapy: 2 Anti-infectives (From admission, onward) Start Dose/Rate Route Frequency Ordered Stop 09/14/19 1204 ceFAZolin (ANCEF) IVPB 2 g in dextrose (premix) 2 g 200 mL/hr over 30 Minutes Intravenous Every 4 hours 09/14/19 1204 09/14/19201309/13/19 0330 [MAR Hold] metroNIDAZOLE (FLAGYL) IVPB 500 mg (MAR Hold since 09/14/2019 at 1155. Reason: Unreviewed Transfer Orders.) 500 mg 100 mL/hr over 60 Minutes Intravenous Every 8 hours 09/13/19 0329 09/20/19 0444 09/13/19 0330 [MAR Hold] ciprofloxacin in D5W (CIPRO) IVPB 200 mg (MAR Hold since 09/14/2019 at 1155. Reason: Unreviewed Transfer Orders.) 200 mg 100 mL/hr over 60 Minutes Intravenous Every 12 hours 09/13/19 0329 09/16/19 0444 Laboratory Data (Most Recent in Past 3 Days) Lab 09/13/19 0239 09/14/19 0406 WBC 13.4* 9.5 HGB 13.4* 12.2* HCT 38.8* 36.3* MCV 88.7 91.9 PLT 267 221 Lab 09/13/19 0239 09/13/19 0612 09/14/19 0406 NA 134* 139 143 K 3.4 3.6 3.6 CL 100 102 105 BICARBONATE 24 23 21* GLUCOSE 113 122 66* BUN 12 12 11 CREATININE 0.42* 0.41* 0.41* Lab 09/14/19 0406 CALCIUM 7.5* Lab 09/13/19 0239 09/14/19 0406 NEUTOPHILPCT 81 76 LYMPHOPCT 10 14 MONOPCT 8 7 EOSPCT 1 2 Lab 09/13/19 0239 PROT 6.4 ALBUMIN 3.6 AST 26 ALT 22 TBILI 0.4 ALKPHOS 71 Lab 09/13/19 0239 INR 1.09 Assessment/Plan Mr. Epifanio Navarro is a 58 y.o. male who is here for Volvulus, likely resolved, surgery planning sigmoid resection. Down in OR now Wernicke's aphasia, can speak but minimal, unclear answers, inconsistent. Schizophrenia and explosive personality disorder, no change to therapy. Mild, asymptomatic, normocytic anemia, chronic. DVT Prophylaxis: low molecular weight heparin Functional Status: moderately impaired Code Status: Full Code Disposition: Plan discharge to: Nursing Home Estimated Discharge Date: , possibly Monday if all goes well and he improves rapidly after procedure. Signature: Jac Coy MD Date/Time: September 14, 2019 3:03 PM Osmani León MD - 09/14/2019 9:30 AM EST Surgery Progress Note Post Operative Day #: 1 Day Post-Op Procedure: Procedure(s) (LRB): COLONOSCOPY, FLEXIBLE, PROXIMAL TO SPLENIC FLEXURE DX, W/WO SPECIMENS/COLON DECOMP (SEP PROC) (N/A) Length of stay: 1 Interval Present History: No acute events overnight. Patient is s/p endoscopic decompression for sigmoid volvulus on 09/13. Since then, his abdominal exam has been improving. He denies any nausea or vomiting. He endorses improvement of his abdominal pain. He is currently drinking Golytely for plans forsurgery today. He has had multiple episodes of diarrhea as a result. He is otherwise HDS. Intake/Output last 3 shifts: I/O last 3 completed shifts: In: 4278.1 [P.O.:2240; I.V.:1614.2; Other:40; IV Piggyback:383.9] Out: 2100 [Urine:2100] Reason for Mcmanus: Accurate I's and O's Physical Exam Visit Vitals BP 128/73 (BP Location: Right arm, Patient Position: Lying) Pulse 89 Temp 36.8 C Resp 16 SpO2 96% General: Alert, cooperative, no distress Head: Normocephalic, atraumatic Neck: Supple, symmetrical, trachea midline Lungs: Breathing comfortably Heart: RRR Abdomen: Soft, non-tender, non-distended Neuro: Grossly intact, no focal deficits Data Reviewed Recent Labs 09/13/19 0239 09/13/19 0612 09/14/19 0406 WBC 13.4* -- 9.5 HGB 13.4* -- 12.2* HCT 38.8* -- 36.3* PLT 267 -- 221 INR 1.09 -- -- NA 134* 139 143 K 3.4 3.6 3.6 CL 100 102 105 BICARBONATE 24 23 21* BUN 12 12 11 CREATININE 0.42* 0.41* 0.41* GLUCOSE 113 122 66* CALCIUM 8.5* 7.8* 7.5* Assessment and Plan: 58M with a PMH of Schizophrenia and Wernicke's aphasia who was admitted for sigmoid volvulus. He is POD#1 s/p endoscopic decompression. His abdominal exam has significantly improved. He is HDS with a leukocytosis that is trending down to 9.5 today. He will need surgical correction (sigmoidectomy), which will likely be attempted today. Plan: -Plans for tentative OR today -Pain control -IV hydration -Continue ERAS protocol Patient was seen and discussed with Dr. Jones, surgery attending. Osmani Cassidy MD General Surgery PGY-2 Car Pulido MD - 09/14/2019 9:15 AM EST Surgery Progress Note Hospital Day #: 1 Post Operative Day #: 1 Day Post-Op Procedure: Procedure(s) (LRB): COLONOSCOPY, FLEXIBLE, PROXIMAL TO SPLENIC FLEXURE DX, W/WO SPECIMENS/COLON DECOMP (SEP PROC) (N/A) Subjective: Patient was transferred from [place] overnight on night with concerns for sigmoid volvulus, yesterday he underwent endoscopic decompression by GI, and abdominal XR this morning shows significantly decrease in colon distention, with no recurrence of sigmoid volvulus. Heavy stool burden also seems to have improved. He started GoLytely overnight and has taken about half. He has hadabout 4 medium sized watery brown bowel movements. This morning he is sitting up comfortably and hasno complaints. Abdomen is minimally- distended and soft. Afebrile, non-tachycardic. Objective: Temp (24hrs), Av.7 C, Min:36.3 C, Max:37.2 C Vitals: 09/13/19 2100 09/14/19 0045 09/14/19 0544 09/14/19 0700 BP: 142/88 128/73 126/68 128/73 BP Location: Right arm Right arm Right arm Right arm Patient Position: Sitting Sitting Lying Pulse: 99 85 83 89 Resp: 17 17 16 16 Temp: 36.9 C 36.3 C 36.7 C 36.8 C TempSrc: Oral Oral Oral SpO2: 96% 96% 95% 96% I/O last 3 completed shifts: In: 4278.1 [P.O.:2240; I.V.:1614.2; Other:40; IV Piggyback:383.9] Out: 2100 [Urine:2100] No intake/output data recorded. General: pt sitting up comfortably in bed, non-toxic appearing, in no acute distress, non-toxic appearing Heart: non-tachycardic, non-diaphoretic Lungs: breathing is non-labored on room air Abd: minimally distended, soft, non- tender Extremities: warm, well perfused Skin: warm, dry, non-diaphoretic Labs Recent Labs Lab 09/13/19 0239 09/14/19 0406 WBC 13.4* 9.5 RBC 4.37* 3.95* HGB 13.4* 12.2* HCT 38.8* 36.3* PLT 267 221 NEUTOPHILPCT 81 76 MONOPCT 8 7 Recent Labs Lab 09/13/19 0239 09/13/19 0612 09/14/19 0406 NA 134* 139 143 K 3.4 3.6 3.6 CL 100 102 105 BICARBONATE 24 23 21* GLUCOSE 113 122 66* BUN 12 12 11 CREATININE 0.42* 0.41* 0.41* BCR 29 29 28 GFRAA >90 >90 >90 GFRNONAA >90 >90 >90 Recent Labs Lab 09/13/19 0239 INR 1.09 Radiology 09/14 AXR: IMPRESSION: 1. Decreased distention of the dilated loop of bowel within the right side of the abdomen since the prior examination. 2. No evidence of recurrence of the sigmoid volvulus. Patient Active Problem List Diagnosis Volvulus A/P: 58 y.o. male with schizophrenia and Wernicke's aphasia, non verbal at baseline, and lives [facility], who was transferred from [place] with sigmoid volvulus. He is POD#1 s/p endoscopic decompression by GI, with significant improvement. His obstruction symptoms have resolved and XR this morning showed no recurrence of volvulus. Leukocytosis resolved. - abdominal exam and XR consistent with resolution of volvulus without recurrence. Plan for open sigmoidectomy today. - No indication for emergent colectomy, continue bowel prep with Golytely for colon clean out. - Night team was able to reach patient's mother to discuss surgery, attempts made this morning unsuccessful. Will try calling again this morning. Surgical plan to be discussed with Attending Dr. Singh. Shruthi Turner MD General Surgery PGY-5 Pager [phone] The patient presented with a sigmoid volvulus, was scoped eith decompression, the bowel was prepped and he is ready for sigmoid resection. Risks and benefits were dicussed with thepatient and he is willing to proceed. Vinny Curtis MBBS - 2019 9:24 PM ESTPlan for surgery tomorrow, for a sigmoid resection with Dr. Singh Patient to be started on ERAS protocol tonight. Please encourage drinking Golytely. Will get abx now. Plan to get AM abdominal x-ray. FABI Ball General Surgery Resident PGY-4 [facility] Pager: [phone] Raheem Wilder MD - 09/13/2019 4:39 PM ESTPatient seen and examined at bedside. Patient had vovlulus decompression by GI this morning. Follow up abdominal x- ray showed. Dilated loop of sigmoid colon with loss of the haustral folds measuring upto 9.0 cm. This is compatible with history of sigmoid volvulus. Physical exam was improved with less abdominal distention and pain. Surgery recommending slowly prepping with go lytely. If distention or pain worsens may need urgent colectomy. Attempted to contact patient's health care proxy (his mom), but didn't get an answer. Will try againtomorrow. Jac Strange PharmD - 09/13/2019 3:28 PM EST Pharmacy Inpatient Medication History Review Medications Prior to Admission Medication Sig Dispense Refill Last Dose Acetaminophen 500 MG Oral Tablet (TYLENOL) Take 1,000 mg by mouth every 6 (six) hours as needed for Pain Alum & Mag Hydroxide-Simeth 200-200-20 MG/5ML Oral Suspension Take 5 mLs by mouth every 4(four) hours as needed Aspirin 81 MG Oral Tablet Delayed Release Take 81 mg by mouth daily Benztropine Mesylate 1 MG Oral Tablet (COGENTIN) Take 1 mg by mouth Two Times Daily carbidopa-levodopa (SINEMET) 25-100 MG per tablet Take 0.5 tablets by mouth Four times daily At 0600, 1000, 1500, 2000 10/27/2015 at Unknown time Chlorhexidine Gluconate 0.12 % Mouth/Throat Solution (PERIDEX) Use as directed 15 mLs in the mouth or throat daily Desloratadine 5 MG Oral Tablet (CLARINEX) Take 5 mg by mouth daily divalproex (DEPAKOTE) 250 MG EC tablet Take 1 tablet by mouth Two times daily before meals. 60 tablet 0 Docusate Sodium 100 MG Oral Capsule (COLACE) Take 100 mg by mouth Two Times Daily Doxepin HCl 25 MG Oral Capsule (SINEQUAN) Take 25 mg by mouth nightly Famotidine 20 MG Oral Tablet (PEPCID) Take 20 mg by mouth Two Times Daily guaiFENesin 100 MG/5ML Oral Syrup (ROBITUSSIN) Take 200 mg by mouth every 4 (four) hours as needed for Cough Ibuprofen 800 MG Oral Tablet (ADVIL,MOTRIN) Take 800 mg by mouth every 6 (six) hours as needed for Pain levocetirizine (XYZAL) 5 MG tablet Take 5 mg by mouth every evening. Loperamide HCl 1 MG/5ML Oral Liquid (IMODIUM) Take 6 mg by mouth daily as needed for DiarrheaMay give an addition 15ML for each loose stool to follow. Maximum Daily Dose = 60ML lorazepam (ATIVAN) 0.5 MG tablet Take 0.5 mg by mouth Four times daily 12/15/2015 at Unknown time Magnesium Hydroxide 400 MG/5ML Oral Suspension (MILK OF MAGNESIA) Take 30 mLs by mouth every 3 (three) days as needed for Constipation Misc. Devices (DURABLE MEDICAL EQUIPMENT SEE SIG) MISC Use as directed. Eulalia anderson DX: R26 S80.0 1 each 0 omeprazole (PRILOSEC) 20 MG capsule Take 20 mg by mouth daily. 12/15/2015 at Unknowntime polyethylene glycol (MIRALAX) packet Take 17 g by mouth daily. QUEtiapine Fumarate 100 MG Oral Tablet (SEROquel) Take 100 mg by mouth nightly QUEtiapine Fumarate 50 MG Oral Tablet (SEROquel) Take 50 mg by mouth Two Times Daily Sennosides (SENNA) 8.6 MG TABS tablet Take 2 tablets by mouth nightly. 12/14/2015 atUnknown time The following medications have been added: Loperamide, Mylanta, Doxepin, MoM, Tylenol, Ibuprofen, Guaifenesin, Famotidine, Aspirin, Desloratadine, Chlorhexidine, Docusate, Depakote The following medications have been removed: Claritin, Latuda The following medications have been modified: Benztropine, Sinemet, Ativan, Quetiapine The patient takes the following medications differently than prescribed: Medication History Source: [facility] [phone] The above prior to admission medications have been compared to current inpatient orders. Discrepancies: The following home medications are not currently ordered or ordered differently as inpatient: - acetaminophen, aspirin, benztropine, desloratadine, doxepin, famotidine, lorazepam, omeprazole, polyethylene glycol, quetiapine Recommendations: Please consider restarting the home medications listed above if determined to be clinically appropriate. - divalproex was 250 mg bid at home - quetiapine was 100 mg nightly in addition to 50 mg bid at home - benztropine dose was 1 mg bid at home Medication history was completed based on information available during this patient encounter, the list above may not be all inclusive. Thank you, Jac Becerril Pharm.D., BCPS hitAve olivas MD - 09/13/2019 2:52 PM ESTPatient seen and examined after scope. Feels better but denies passing gas. Abdomen mildly distended, soft, non tender. His post procedure AXR shows likely persistent volvulus but the distension hasmarkedly decreased from his previous scan. Recommend slowly prepping with go lytely if he can tolerate it. If distension/abdominal exam worsens may need urgent colectomy. I attempted to call his mother but line was busy. Will try again this evening. Ave Fraire MD Trauma and Acute Care Surgery ajorNimo RN - 09/13/2019 2:14 PM ESTPatient bladder scanned for 1300ml. Dr. Gonzalo Michael notified. stated to straight cath patient. Margaret Yoder RN - 2:09 PM ESTCase Management Screen & Assessment Patient's Name: Epifanio Navarro Date of : 1960 Age: 58 y.o. Gender: male Attending Provider: Jac Coy MD Admitting Diagnosis: Sigmoid volvulus needing colonic decompression. Volvulus Admission Date and Time: 09/13/2019 1:27 AM High Risk Criteria - DIRECTOR INTERNAL CONTROL/Upon Arrival DIRECTOR INTERNAL CONTROL-Type of Residence: skilled nursing DIRECTOR INTERNAL CONTROL- Care Facility Name: [facility] DIRECTOR INTERNAL CONTROL- Home Care Services: No Limited Home Supports/Lives Alone?: No Multi trauma/Critical care admit?: No Head/Spinal cord injury?: No Self pay/No prescription plan?: No Active with homecare?: No Multiple ED visits?: No Related/Unplanned readmission within 30 days?: No Complex/New medical issues: sigmoid volvulus Relevant comorbidities: schizophrenia, personality Disorder, Wernekes aphasia CM Screen Outcome Funeral Pre Need Consultant Screen Outcome: Meets high risk criteria for active human services case manager intervention Important message (Medicare rights) given?: No Intervention: 09/13/19 CM Chart Review Notice of Privacy Practice Signed?: No Date admitting notifed: 09/13/19 DIRECTOR INTERNAL CONTROL: Functional/Environmental Assessment Bathing: Needs assistance Dressing: Independent Toileting: Independent Medication administration: Unable to assess Transfers: Unable to assess Ambulation: Unable to assess Meal preparation: Unable to assess Number of stairs into home: 0 Number of stairs to bathroom: 0 Number of stairs to bedroom: 0 Case Management Review Date CM re-review date needed?: Yes Case Management Review Date: 09/20/19 Discharge Assessment Living Arrangements: Other (Comment) Support Systems: Home care staff Type of Residence: skilled nursing Home services arranged?: No Note: 58 year old admitted with sigmoid volvulus. Discussed in multidisciplinary rounds. CM at bedside and patient in Endo suite. CM called house nurse for updates, Constanza Mckenzie, and voicemail was left to return call. Call placed to patient home number to discuss discharge plans and needs at home. CM will try to call again. Chart screen from home chart of patient screened. Plan: discharge to [facility] when medically stable, CM to determine what house needs are for patient to bedischarged. CM to follow Margaret Napiertronically signed by Margaret Napier RN at 09/13/2019 2: 13 PM Janie Mathew - 09/13/2019 11:00 AM ESTPatient visited by Department of Spiritual Care Volunteer - John Marks Note entered by Janie Mike MS, Department of Spiritual Care Executive Chairman Of The Board, [facility] Brady Baca MBBS - 09/13/2019 10:09 AM ESTCalled patient's mother (Faith, ) and explained the flex sig procedure findings. Patient'smother was very appreciative. Nella More OT - 2019 8:15 AM ESTOccupational Therapy Acute Care Missed Visit Note Location: Bedside. Attempted to visit patient for therapy, but was unable for the following reasons: Treatment not completed secondary to scheduling conflict. Pt. is currently off the unit at Endo. Will reattempt as appropriate and as time allows. (Therapist may be reached on Vocera) SESSION: Duration: 0 CHARGES: - CHARGE-IP OT SCHEDULING CONFLICT 1 Units Total treatment minutes: 0.00 Minutes Electronically Signed by: NAM Robertson/L, 09/13/2019 8:16:39 AM Cecilia Gomez PT - 09/13/2019 8:15 AM ESTPhysical Therapy Acute Care Missed Visit Note Location: bedside Attempted to visit patient for therapy, but was unable for the following reasons: Treatment not completed secondary to scheduling conflict. Patient is off the floor to Endoscopy. Will reattempt for PT evaluation as schedule allows. (Therapist may be reached on Vocera) SESSION: Duration: 0 CHARGES: - CHARGE-IP PT PATIENT SCHEDULING CONFLICT 1 Units Total treatment minutes: 0.00 Minutes Electronically Signed by: Cecilia Cam DPT, PT 09/13/2019 8:16:36 AM Ladan Merchant GN - 09/13/2019 3:03 AM ESTIf wound was present on admission, this documentation was sent to attending provider for cosignature. documented in this encounter Plan of Treatment Date Type Specialty Care Team Description 09/30/2019 Office Visit Surgery Car Singh MD [address] [facility] Room [address] [place] [address] [phone] Name Type Priority Associated Diagnoses Date/Time Surgical Pathology Pathology and Routine 09/16/2019 7:09 Exam ( Only) Cytology AM EST Name Type Priority Associated Order Schedule Diagnoses Basic Metabolic Lab Routine AM Draw for 5 Days Panel starting 09/13/2019 until 09/17/2019, 4 completed Surgical Pathology Pathology and Routine Once for 1 Exam ( Only) Cytology Occurrences starting 09/14/2019 until 09/14/2019 Surgical Pathology Pathology and Routine Once for 1 Exam ( Only) Cytology Occurrences starting 09/14/2019 until 09/14/2019 Health Maintenance Due Date Last Done Comments Hepatitis C Screening (B. 1960 [id number]) MMR Vaccines (1 of 1 - Standard 1961 series) Varicella Vaccines (1 of 2 - 1961 2-dose childhood series) DTaP,Tdap,and Td Vaccines (1 - 1969 Tdap) HIV Screening 1975 Influenza Vaccine 05/21/2019 Pneumococcal Vaccine: 65+ Years (1 2027 of 2 - PCV13) Colon Cancer Screening 10 yrs 09/13/2029 09/13/2019 HIB Vaccines Aged Out No longer [...] age to complete this topic Pneumococcal Vaccine: Pediatrics Aged Out No longer eligible based on (0 to 5 Years) and At-Risk patient's age to complete Patients (6 to 64 Years) this topic documented as of this encounter Procedures Procedure Name Priority Date/Time Associated Diagnosis Comments CBC AND DIFFERENTIAL Routine 09/16/2019 3:34 Results for this AM EST procedure are in the results section. BASIC METABOLIC PANEL Routine 09/16/2019 3:34 Results for this AM EST procedure are in the results section. CBC AND DIFFERENTIAL Routine 09/15/2019 4:24 Results for this AM EST procedure are in the results section. BASIC METABOLIC PANEL Routine 09/15/2019 4:24 Results for this AM EST procedure are in the results section. COLECTOMY/COLON 09/14/2019 12:35 sigmoid volvulus RESECTION PM EST POCT GLUCOSE, DOCKED Routine 09/14/2019 12:14 Results for this PM EST procedure are in the results section. MERE VIDEO Routine 09/14/2019 11:32 AM EST XR ABDOMEN AP ABD Routine 09/14/2019 5:15 Results for this SUPINE ONLY [address]1971 AM EST procedure are in the results section. CBC AND DIFFERENTIAL Routine 09/14/2019 4:06 Results for this AM EST procedure are in the results section. BASIC METABOLIC PANEL Routine 09/14/2019 4:06 Results for this AM EST procedure are in the results section. XR ABDOMEN AP ABD Routine 09/13/2019 11:22 Results for this SUPINE ONLY 42485 AM EST procedure are in the results section. LACTIC ACID LEVEL, Timed 09/13/2019 10:20 Results for this PLASMA AM EST procedure are in the results section. COLONOSCOPY, FLEXIBLE, 09/13/2019 8:23 colonic decompression PROXIMAL TO SPLENIC AM EST FLEXURE DX, W/WO SPECIMENS/COLON DECOMP (SEP PROC) LACTIC ACID LEVEL, Timed 09/13/2019 6:12 Results for this PLASMA AM EST procedure are in the results section. BASIC METABOLIC PANEL Routine 09/13/2019 6:12 Results for this AM EST procedure are in the results section. PARTIAL THROMBOPLASTIN Routine 09/13/2019 2:39 Results for this TIME (PTT) AM EST procedure are in the results section. PROTIME INR Routine 09/13/2019 2:39 Results for this AM EST procedure are in the results section. CBC AND DIFFERENTIAL Routine 09/13/2019 2:39 Results for this AM EST procedure are in the results section. LACTIC ACID LEVEL, Timed 09/13/2019 2:39 Results for this PLASMA AM EST procedure are in the results section. COMPREHENSIVE Routine 09/13/2019 2:39 Results for this METABOLIC PANEL AM EST procedure are in the results section. COLONOSCOPY 09/13/2019 12:00 AM EST documented in this encounter Results CBC and Differential (09/16/2019 3:34 AM EST) White Blood Cell 10.9 (H) 4 - 10 [facility] 10*3/uL [facility] Path[facility] Red Blood Cell 3.46 (L) 4.6 - 6.1 [facility] 10*6/uL [facility] Hemoglobin 10.9 (L) 13.5 - 18 [facility] g/dL [facility] Pathology Hematocrit 30.4 (L) 41 - 53 % [facility] Pathology Mean Cell Volume 87.8 80 - 96 fL [facility] Path[facility] Mean Cell Hemoglobin 31.4 27 - 33 pg [facility] Path[facility] Mean Cell Hgb Conc 35.7 32.0 - 36.0 [facility] g/dL [facility] Red Cell Dist Width 12.7 11.5 - 14.5 % [facility] Platelet Count 223 150 - 400 [facility] 10*3/uL [facility] Differential Type Automated Diff [facility] Neutrophil 73 % [facility] Lymphocyte 13 % [facility] Monocyte 10 % [facility] Eosinophil 4 % [facility] Basophil 0 % [facility] Abs Neutrophil 7.89 (H) 1.8 - 7.0 [facility] 10*3/uL [facility] Abs Lymphocyte 1.42 1.2 - 4.0 [facility] 10*3/uL [facility] Abs Monocyte 1.12 (H) 0 - 0.8 [facility] 10*3/uL [facility] Abs Eosinophil 0.40 0 - 0.5 [facility] 10*3/uL [facility] Abs Basophil 0.05 0 - 0.2 [facility] 10*3/uL [facility] Nucleated Red Blood 0 0 - 0 [facility] Cells /100{WBCs} [facility] Pathology Specimen EDTA Whole Blood Performing Organization Address City/State/[facility] Phone Number [facility] CLINICAL PATHOLOGY [address] [place] [address] [facility] [address] [place] [address] Pathology Basic Metabolic Panel (09/16/2019 3:34 AM EST) Bicarbonate 24 22 - 29 mmol/L [facility]ology Chloride 106 98 - 107 mmol/L [facility] Creatinine 0.32 (L) 0.70 - 1.20 [facility] mg/dL [facility] Glucose 106 70 - 140 mg/dL [facility] Potassium 3.6 3.4 - 5.1 [facility] mmol/L [facility] Sodium 140 136 - 145 [facility] mmol/L [facility] Pathology Blood Urea Nitrogen 6 6 - 20 mg/dL [facility]ology Anion Gap 10 8 - 15 mmol/L [facility]ology Osmolality, Ever 289 275 - 300 [facility] mosm/kg [facility] BUN/Cre Ratio 19 [facility]ology Calcium 7.5 (L) 8.6 - 10.0 [facility] mg/dL [facility] GFR Non >90 >60 [facility] [place] 2009 CDK-EPI mL/min/1.73m2 [facility] GFR >90 >60 [facility] 2009 CKD-EPI mL/min/1.73m2 [facility] Specimen Plasma Performing Organization Address City/State/Zipcode Phone Number [facility] CLINICAL PATHOLOGY [address] [place] [address] [facility] [address] [place] [address] Pathology CBC and Differential (09/15/2019 4:24 AM EST) White Blood Cell 10.4 (H) 4 - 10 [facility] 10*3/uL [facility] Red Blood Cell 3.47 (L) 4.6 - 6.1 [facility] 10*6/uL [facility] Hemoglobin 10.9 (L) 13.5 - 18 [facility] g/dL [facility] Hematocrit 30.9 (L) 41 - 53 % [facility] Mean Cell Volume 89.0 80 - [address] [facility] Pathology Mean Cell Hemoglobin 31.4 27 - [address] [facility] Mean Cell Hgb Conc 35.3 32.0 - 36.0 [facility] g/dL [facility] Red Cell Dist Width 12.6 11.5 - 14.5 % [facility] Pathology Platelet Count 199 150 - 400 [facility] 10*3/uL [facility] Differential Type Automated Diff [facility] Neutrophil 78 % [facility] Lymphocyte 12 % [facility] Monocyte 8 % [facility] Eosinophil 2 % [facility] Pathology Basophil 0 % [facility]ology Abs Neutrophil 8.10 (H) 1.8 - 7.0 [facility] 10*3/uL [facility] Abs Lymphocyte 1.23 1.2 - 4.0 [facility] 10*3/uL [facility] Abs Monocyte 0.83 (H) 0 - 0.8 [facility] 10*3/uL [facility] Abs Eosinophil 0.18 0 - 0.5 [facility] 10*3/uL [facility] Abs Basophil 0.03 0 - 0.2 [facility] 10*3/uL [facility] Pathology Nucleated Red Blood 0 0 - 0 [facility] Cells /100{WBCs} [facility] Pathology Specimen EDTA Whole Blood Performing Organization Address [facility] Phone Number [facility] PATH[facility] [address] [place], [place] [phone] [facility] [address] [place] [address] Pathology Basic Metabolic Panel (09/15/2019 4:24 AM EST) Pathologist [facility] Bicarbonate 19 (L) 22 - 29 mmol/L [facility] Pathology Chloride 103 98 - 107 mmol/L [facility] Pathology Creatinine 0.42 (L) 0.70 - 1.20 [facility] mg/dL [facility] Pathology Glucose 65 (L) 70 - 140 mg/dL [facility] Potassium 3.0 (L) 3.4 - 5.1 [facility] mmol/L [facility] Pathology Sodium 144 136 - 145 [facility] mmol/L [facility] Pathology Blood Urea Nitrogen 7 6 - 20 mg/dL [facility] Pathology Anion Gap 22 (H) 8 - 15 mmol/L [facility] Osmolality, Ever 294 275 - 300 [facility] mosm/kg [facility] Pathology BUN/Cre Ratio 16 [facility] Pathology Calcium 7.3 (L) 8.6 - 10.0 [facility] mg/dL [facility] Pathology GFR Non >90 >60 [facility] [place] 2008 CDK-EPI mL/min/1.73m2 [facility] Pathology GFR >90 >60 [facility] 2009 CKD-EPI mL/min/1.73m2 [facility] Pathology Specimen Plasma Performing Organization Address [facility] Phone Number [facility] [address] [place] [address] [facility] [address] [place] [address] Pathology POCT glucose, docked (09/14/2019 12:14 PM EST) Pathologist [facility] POC Glucose 76 70 - 140 mg/dL [facility] POC Specimen Whole Blood Performing Organization Address [facility] Phone Number POINT OF CARE TEST [address] [place] [address] [facility] POC [address] [place] [address] XR Abdomen AP Abd Supine Only (09/14/2019 5:15 AM EST) Specimen Narrative Performed At PROCEDURE INFORMATION: [facility] Exam: XR Abdomen, 1 View Exam date and time: 09/14/2019 5:05 AM Age: 58 years old Clinical indication: Other: Please assess for the sigmoid volvulus TECHNIQUE: Imaging protocol: XR of the abdomen. Views: Frontal supine view of the abdomen. 1 View. COMPARISON: CR XR ABDOMEN AP ABD SUPINE ONLY [id number] PORTABLE 09/13/2019 11:04 AM FINDINGS: Tubes, catheters and devices: There is a catheter coiled within the distal colon. Gastrointestinal tract: Decreased distention of the dilated loop of bowel within the right side of the abdomen since the prior examination. Bones/joints: Unremarkable. Other findings: No evidence of recurrence of the sigmoid volvulus. IMPRESSION: 1. Decreased distention of the dilated loop of bowel within the right side of the abdomen since the prior examination. 2. No evidence of recurrence of the sigmoid volvulus. THIS DOCUMENT HAS BEEN ELECTRONICALLY SIGNED BY BALDO BAUER MD Procedure Note Interface, Received Via DB3 Mobile System - 09/14/2019 6:30 AM EST PROCEDURE INFORMATION: Exam: XR Abdomen, 1 View Exam date and time: 09/14/2019 5:05 AM Age: 58 years old Clinical indication: Other: Please assess for the sigmoid volvulus TECHNIQUE: Imaging protocol: XR of the abdomen. Views: Frontal supine view of the abdomen. 1 View. COMPARISON: CR XR ABDOMEN AP ABD SUPINE ONLY [id number] PORTABLE 09/13/2019 11:04 AM FINDINGS: Tubes, catheters and devices: There is a catheter coiled within the distal colon. Gastrointestinal tract: Decreased distention of the dilated loop of bowel within the right side of the abdomen since the prior examination. Bones/joints: Unremarkable. Other findings: No evidence of recurrence of the sigmoid volvulus. IMPRESSION: 1. Decreased distention of the dilated loop of bowel within the right side of the abdomen since the prior examination. 2. No evidence of recurrence of the sigmoid volvulus. THIS DOCUMENT HAS BEEN ELECTRONICALLY SIGNED BY BALDO BAUER MD Performing Organization Address City/State/Zipcode Phone Number [facility] [address] [place] [address] CBC and Differential (09/14/2019 4:06 AM EST) White Blood Cell 9.5 4 - 10 [facility] 10*3/uL [facility] Red Blood Cell 3.95 (L) 4.6 - 6.1 [facility] 10*6/uL [facility] Hemoglobin 12.2 (L) 13.5 - 18 [facility] g/dL [facility] Hematocrit 36.3 (L) 41 - 53 % [facility] Mean Cell Volume 91.9 80 - 96 fL [facility] Mean Cell Hemoglobin 30.9 27 - 33 pg [facility] Mean Cell Hgb Conc 33.6 32.0 - 36.0 [facility] g/dL [facility] Pathology Red Cell Dist Width 13.0 11.5 - 14.5 % [facility] Platelet Count 221 150 - 400 [facility] 10*3/uL [facility]ology Differential Type Automated Diff [facility] Neutrophil 76 % [facility] Lymphocyte 14 % [facility] Monocyte 7 % [facility] Eosinophil 2 % [facility]ology Basophil 1 % [facility]ology Abs Neutrophil 7.17 (H) 1.8 - 7.0 [facility] 10*3/uL [facility] Abs Lymphocyte 1.32 1.2 - 4.0 [facility] 10*3/uL [facility] Abs Monocyte 0.69 0 - 0.8 [facility] 10*3/uL [facility] Abs Eosinophil 0.22 0 - 0.5 [facility] 10*3/uL [facility] Abs Basophil 0.07 0 - 0.2 [facility] 10*3/uL [facility] Pathology Nucleated Red Blood 0 0 - 0 [facility] Cells /100{WBCs} [facility] Pathology Specimen EDTA Whole Blood Performing Organization Address City/State/Zipcode Phone Number [facility] PATHOLOG[facility] [address] [place] [address] [facility] [address] [place] [address] Pathology Basic Metabolic Panel (09/14/2019 4:06 AM EST) Bicarbonate 21 (L) 22 - 29 mmol/L [facility] Chloride 105 98 - 107 mmol/L [facility] Creatinine 0.41 (L) 0.70 - 1.20 [facility] mg/dL [facility] Pathology Glucose 66 (L) 70 - 140 mg/dL [facility] Potassium 3.6 3.4 - 5.1 [facility] mmol/L [facility] Pathology Sodium 143 136 - 145 [facility] mmol/L [facility] Pathology Blood Urea Nitrogen 11 6 - 20 mg/dL [facility] Anion Gap 17 (H) 8 - 15 mmol/L [facility] Osmolality, Ever 293 275 - 300 [facility] mosm/kg [facility] Pathology BUN/Cre Ratio 28 [facility] Calcium 7.5 (L) 8.6 - 10.0 [facility] mg/dL [facility] Pathology GFR Non >90 >60 [facility] [place] 2009 CDK-EPI mL/min/1.73m2 [facility] Pathology GFR >90 >60 [facility] 2009 CKD-EPI mL/min/1.73m2 [facility] Pathology Specimen Plasma Performing Organization Address City/State/Zipcode Phone Number [facility] [address] [place] [address] [facility] [address] [place] [address] Pathology XR Abdomen AP Abd Supine Only (09/13/2019 11:22 AM EST) Specimen Impressions Performed At IMPRESSION: [facility] Dilated loop of sigmoid colon with loss of the haustral folds measuring up to 9.0 cm. This is compatible with history of sigmoid volvulus. Narrative Performed At INDICATION: Status post volvulus decompression. [facility] TECHNIQUE: Multiple views of the abdomen were obtained. COMPARISON: Multiple supine portable AP views of the abdomen were obtained, 3 images. FINDINGS: Bowel gas pattern: There is a persistent dilated loop of bowel in the right hemiabdomen measuring up to 9.0 cm in greatest dimension with loss of haustral folds compatible with history of recent sigmoid volvulus. Evaluation for free air is suboptimal on supine film, however no large amount of free air is appreciated. There is a very large amount of stool in the cecum and ascending colon. There is a radiopaque catheter coiled in the region of the dilated colon. Abnormal calcifications: None. Bones: Scattered degenerative changes are present. Other: The visualized lung bases are clear. Procedure Note Interface, Received Via Radiant System - 09/13/2019 11:46 AM EST INDICATION: Status post volvulus decompression. TECHNIQUE: Multiple views of the abdomen were obtained. COMPARISON: Multiple supine portable AP views of the abdomen were obtained, 3 images. FINDINGS: Bowel gas pattern: There is a persistent dilated loop of bowel in the right hemiabdomen measuring up to 9.0 cm in greatest dimension with loss of haustral folds compatible with history of recent sigmoid volvulus. Evaluation for free air is suboptimal on supine film, however no large amount of free air is appreciated. There is a very large amount of stool in the cecum and ascending colon. There is a radiopaque catheter coiled in the region of the dilated colon. Abnormal calcifications: None. Bones: Scattered degenerative changes are present. Other: The visualized lung bases are clear. IMPRESSION: Dilated loop of sigmoid colon with loss of the haustral folds measuring up to 9.0 cm. This is compatible with history of sigmoid volvulus. Performing Organization Address City/[facility]/Zipcode Phone Number [facility] [address] [place] [address] Lactic Acid Level, Plasma (09/13/2019 10:20 AM EST) Lactic Acid 0.9 0.5 - 2.2 mmol/l [facility] Specimen Plasma Performing Organization Address [facility] Phone Number [facility] [address] [place] [address] [facility] [address] [place] [address] Pathology Lactic Acid Level, Plasma (09/13/2019 6:12 AM EST) Lactic Acid 1.0 0.5 - 2.2 mmol/l [facility] Specimen Plasma Performing Organization Address [facility] Phone Number [facility] [address] [place] [address] [facility] [address] [place] [phone] Pathology Basic Metabolic Panel (09/13/2019 6:12 AM EST) Bicarbonate 23 22 - 29 mmol/L [facility] Chloride 102 98 - 107 mmol/L [facility] Creatinine 0.41 (L) 0.70 - 1.20 [facility] mg/dL [facility] Glucose 122 70 - 140 mg/dL [facility] Potassium 3.6 3.4 - 5.1 [facility] mmol/L [facility] Sodium 139 136 - 145 [facility] mmol/L [facility] Blood Urea Nitrogen 12 6 - 20 mg/dL [facility] Anion Gap 14 8 - 15 mmol/L [facility]ology Osmolality, Ever 288 275 - 300 [facility] mosm/kg [facility] BUN/Cre Ratio 29 [facility] Calcium 7.8 (L) 8.6 - 10.0 [facility] mg/dL [facility]ology GFR Non >90 >60 [facility] [place] 2009 CDK-EPI mL/min/1.73m2 [facility]ology GFR >90 >60 [facility] 2009 CKD-EPI mL/min/1.73m2 [facility] Pathology Specimen Plasma Performing Organization Address City/[facility] Phone Number [facility] [address] [place] [address] [facility] [address] [place] [address] Pathology Lactic Acid Level, Plasma (09/13/2019 2:39 AM EST) Lactic Acid 1.1 0.5 - 2.2 mmol/l [facility]ology Specimen Plasma Performing Organization Address [facility] Phone Number [facility] [address] [place] [address] [phone] [facility] [address] [place] [address] Pathology Partial Thromboplastin Time (PTT) (09/13/2019 2:39 AM EST) PTT Patient (PAT) 43.1 (H) 24.0 - 34.0 s [facility] Specimen Plasma Performing Organization Address [facility] Phone Number [facility] [address] [place] [address] [phone] [facility] [address] [place] [address] Pathology Protime-INR (09/13/2019 2:39 AM EST) PT Patient 14.4 12.5 - 14.9 [facility] Int'l Normalized 1.09Comment: Routine [facility] Ratio intensity oral [facility] anticoagulation INR is Pathology typically 2.0-3.0. Target INR must be clinically individualized. Specimen Plasma Performing Organization Address City/State/Zipcode Phone Number [facility] [address] [place] [address] [facility] [address] [place] [address] Pathology CBC and Differential (09/13/2019 2:39 AM EST) White Blood Cell 13.4 (H) 4 - 10 [facility] 10*3/uL [facility]ology Red Blood Cell 4.37 (L) 4.6 - 6.1 [facility] 10*6/uL [facility] Hemoglobin 13.4 (L) 13.5 - 18 [facility] g/dL [facility] Hematocrit 38.8 (L) 41 - 53 % [facility] Mean Cell Volume 88.7 80 - [address] [facility] Pathology Mean Cell Hemoglobin 30.7 27 - [address] [facility] Pathology Mean Cell Hgb Conc 34.7 32.0 - 36.0 [facility] g/dL [facility]ology Red Cell Dist Width 13.1 11.5 - 14.5 % [facility] Platelet Count 267 150 - 400 [facility] 10*3/uL [facility]ology Differential Type Automated Diff [facility] Pathology Neutrophil 81 % [facility] Lymphocyte 10 % [facility]ology Monocyte 8 % [facility]ology Eosinophil 1 % [facility] Pathology Basophil 0 % [facility] Pathology Abs Neutrophil 10.88 (H) 1.8 - 7.0 [facility] 10*3/uL [facility] Pathology Abs Lymphocyte 1.31 1.2 - 4.0 [facility] 10*3/uL [facility] Pathology Abs Monocyte 1.12 (H) 0 - 0.8 [facility] 10*3/uL [facility] Pathology Abs Eosinophil 0.08 0 - 0.5 [facility] 10*3/uL [facility]ology Abs Basophil 0.03 0 - 0.2 [facility] 10*3/uL [facility] Pathology Nucleated Red Blood 0 0 - 0 [facility] Cells /100{WBCs} [facility]ology Specimen EDTA Whole Blood Performing Organization Address City/[facility] Phone Number [facility] [address] [place] [address] [phone] [facility] [address] [place] [address] Pathology Comprehensive Metabolic Panel (09/13/2019 2:39 AM EST) Albumin 3.6 3.5 - 5.2 [facility] g/dL [facility] Bilirubin, Total 0.4 <1.2 mg/dL [facility] Pathology Calcium 8.5 (L) 8.6 - 10.0 [facility] mg/dL [facility] Chloride 100Comment: 98 - 107 [facility] Confirmed mmol/L [facility] Creatinine 0.42 (L) 0.70 - 1.20 [facility] mg/dL [facility] Glucose 113 70 - 140 [facility] mg/dL [facility]ology Alkaline 71 40 - 129 U/L [facility] Phosphatase [facility]ology Potassium 3.4Comment: 3.4 - 5.1 [facility] Confirmed mmol/L [facility] Total Protein 6.4 6.4 - 8.3 [facility] g/dL [facility] Sodium 134 (L)Comment: 136 - 145 [facility] Confirmed mmol/L [facility]ology AST/SGO 26 <40 U/L [facility] Pathology Blood Urea Nitrogen 12 6 - 20 mg/dL [facility] Pathology Osmolality, Ever 279Comment: 275 - 300 [facility] Confirmed mosm/kg [facility] BUN/Cre Ratio 29 [facility] Pathology Bicarbonate 24 22 - 29 [facility] mmol/L [facility] ALT/SGP 22 <41 U/L [facility] Pathology Anion Gap 10Comment: 8 - 15 mmol/L [facility] Confirmed [facility] Pathology A/G Ratio 1.3 [facility] Pathology GFR Non >90 >60 [facility] [place] 2008 mL/min/1.73m2 [facility] CDK-EPI Pathology GFR >90 >60 [facility] [place] 2008 mL/min/1.73m2 [facility] CKD-EPI Pathology Specimen Plasma Performing Organization Address City/State/Zipcode Phone Number [facility] [address] [place] [address] [facility] [address] [place] [address] Pathology documented in this encounter Visit Diagnoses Diagnosis Volvulus documented in this encounter Administered Medications Medication Order MAR Action Action Date Dose Rate Site benztropine mesylate (COGENTIN) Given 09/16/2019 8:34 AM EST 0.5 mg injection 0.5 mg 0.5 mg, Intramuscular, 2 Times Daily, First dose on Mon09/13/19 at 0900, For 30 days Given 09/15/2019 9:19 PM EST 0.5 mg Given 09/15/2019 7:36 AM EST 0.5 mg carbidopa-levodopa (SINEMET CR) 25-100 MG Given 09/16/2019 11:56 AM EST 1 tablet per tablet 1 tablet 1 tablet, Oral, Four Times Daily, First dose on Mon09/13/19 at 0800, For 4 days, Do not crush or chew, Given 09/16/2019 8:33 AM EST 1 tablet Given 09/15/2019 9:20 PM EST 1 tablet divalproex (DEPAKOTE) 24 hr tablet 500 mg Given 09/15/2019 9:20 PM EST 500 mg 500 mg, Oral, Nightly, First dose on Mon09/13/19 at 2200, For 30 days, Do not crush or chew, Given 09/14/2019 8:31 PM EST 500 mg Given 09/14/2019 12:37 AM EST 500 mg enoxaparin sodium (LOVENOX) injection 40 mg Given 09/16/2019 8:33 AM EST 40 mg 40 mg, Subcutaneous, Daily Standard, First dose on Mon09/13/19 at 0900, For 30 days Given 09/15/2019 7:39 AM EST 40 mg Given 09/14/2019 7:56 AM EST 40 mg ondansetron (ZOFRAN) injection 4 mg New Bag 09/14/2019 8:24 PM EST 4 mg 4 mg, Intravenous, Every 8 hours PRN, Nausea, Vomiting, Starting 09/14/19 at 1950, For 30 days QUEtiapine (SEROquel) tablet 50 mg Given 09/16/2019 8:33 AM EST 50 mg 50 mg, Oral, 2 Times Daily, First dose on Mon09/13/19 at 0900, For 30 days Given 09/15/2019 9:20 PM EST 50 mg Given 09/15/2019 7:38 AM EST 50 mg Medication Order MAR Action Action Date Dose Rate Site acetaminophen (OFIRMEV) New Bag 09/13/2019 3:47 AM 1,000 mg 400 mL/hr infusion 1,000 mg EST 1,000 mg, Intravenous, Administer over 15 Minutes, Once, Mon09/13/19 at 0330, For 1 dose, Maximum dose 3 gm daily from all sources, acetaminophen (OFIRMEV) infusion New Bag 09/15/2019 11:51 AM EST 1,000 mg 400 mL/hr 1,000 mg 1,000 mg, Intravenous, Administer over 15 Minutes, Every 8 hours, First dose (after last reorder) on Mon09/14/19 at 2000, For 1 day, Maximum dose 3 gm daily from all sources, New Bag 09/15/2019 5:10 AM EST 1,000 mg 400 mL/hr New Bag 09/14/2019 8:23 PM EST 1,000 mg 400 mL/hr acetaminophen (TYLENOL) tablet 975 mg Given 09/14/2019 12:12 PM EST 975 mg 975 mg, Oral, Once, 09/14/19 at 1215, For 1 dose, Pre-op, Maximum daily dose of acetaminophen is 3,000 mg from all sources in 24 hours., alvimopan (ENTEREG) capsule 12 mg Given 09/14/2019 12:13 PM EST 12 mg 12 mg, Oral, Once, 09/14/19 at 1215, For 1 dose, Pre-op, FDA REMS: Due to increased risk for myocardial infarction with prolonged use, the total course of therapy must NOT exceed 15 doses., celecoxib (CELEBREX) capsule 200 mg Given 09/14/2019 12:12 PM EST 200 mg 200 mg, Oral, Once, 09/14/19 at 1215, For 1 dose, Pre-op, Avoid in patients with elevated creatinine/CKD, and also in patients with peptic ulcer disease, ciprofloxacin in D5W (CIPRO) IVPB New Bag 09/16/2019 5:00 AM EST 200 mg 100 mL/hr 200 mg 200 mg, Intravenous, at 100 mL/hr, Every 12 hours, First dose on Mon09/13/19 at 0330, For 11 doses, Discouraged Uses ( only): -Treatment of community-acquired intra-abdominal infection (moxifloxacin preferred in severe PCN allergy) -Empiric treatment of UTI without allergies (poor E. coli coverage) , New Bag 09/15/2019 4:08 PM EST 200 mg 100 mL/hr New Bag 09/15/2019 5:44 AM EST 200 mg 100 mL/hr gabapentin (NEURONTIN) capsule 600 mg Given 09/14/2019 12:13 PM EST 600 mg 600 mg, Oral, Once, 09/14/19 at 1215, For 1 dose, Pre-op, Hold if patient on hemodialysis, reduce dose to 300 mg if age > 70 or reduced kidney function., metroNIDAZOLE (FLAGYL) IVPB 500 mg New Bag 09/16/2019 4:02 AM EST 500 mg 100 mL/hr 500 mg, Intravenous, Administer over 60 Minutes, Every 8 hours, First dose on Mon09/13/19 at 0330, For 7 days New Bag 09/15/2019 9:26 PM EST 500 mg 100 mL/hr New Bag 09/15/2019 12:44 PM EST 500 mg 100 mL/hr NaCl infusion 0.9 % New Bag 09/15/2019 2:35 AM EST 75 mL/hr at 75 mL/hr, Intravenous, Continuous, Starting Mon09/13/19 at 0230, For 30 days New Bag 09/14/2019 4:44 PM EST 75 mL/hr New Bag 09/14/2019 5:11 AM EST 75 mL/hr polyethylene glycol (GoLYTELY,NuLYTELY) Given 09/13/2019 5:29 PM EST 4,000 mLs suspension 4,000 mL 4,000 mL, Oral, Once, Mon09/13/19 at 1545, For 1 dose, Have patient slowly drink, polyethylene glycol (GoLYTELY,NuLYTELY) Given 09/14/2019 12:42 AM EST 4,000 mLs suspension 4,000 mL 4,000 mL, Oral, Once, Mon09/13/19 at 2145, For 1 dose potassium chloride 10 mEq in Rate/Dose Change 09/15/2019 2:00 PM EST 200 mL/hr 100 mL IVPB (premix) 20 mEq, Intravenous, Administer over 60 Minutes, Every 6 hours, First dose on Mon09/15/19 at 0830, For 2 doses New 09/15/2019 12:43 PM EST 20 mEq 100 mL/hr 09/15/2019 8:36 AM EST 20 mEq 200 mL/hr scopolamine Patch Applied 09/14/2019 12:13 PM 1 patch Behind Left Ear (TRANSDERM-SCOP) patch 1.5 EST mg 1 patch, Transdermal, Once, 09/14/19 at 1215, For 1 dose, Pre-op, Programmed to deliver in-vivo approximately 1 mg of scopolamine over 3 days, thiamine (B-1) 250 mg in sodium New 09/16/2019 8:35 AM EST 250 mg 100 mL/hr chloride 0.9 % 50 mL IVPB 250 mg, Intravenous, Administer over 30 Minutes, Daily at 0700, First dose on Mon09/13/19 at 0715, For 4 days 09/15/2019 7:38 AM EST 250 mg 100 mL/hr 09/14/2019 6:45 AM EST 250 mg 100 mL/hr documented in this encounter
--- OUTSIDE RECORDS SUMMARY | 2019-10-07 13:05 | XMS REPORT | Continuity of Care Document ---
:1960 External Reference #:[id number] Author Name James Summers M.D. (transmitted by agent of provider Yeni Thompson) Address [address] [place] [address] Care Team Providers Name Role Phone Carlos Mix MD - Neurology Care Team Information Retail Delivery Driver Michelle Wei PA - Physician Care Team Information Retail Delivery Driver Clinical Nursing Professor Problems Active Problems Provider Date Screening for malignant neoplasm of James Summers, Onset: 2017 colon Silviano Walking disability Norma Cantu MD Onset: 10/16/2013 Moderate intellectual disability Norma Cantu MD Onset: 10/16/2013 Acquired spondylolisthesis Carlos Marcano MD, FACS Onset: 07/10/2013 Secondary parkinsonism Carlos Marcano MD, FACS Onset: 05/29/2013 Low back pain Carlos Marcano MD, FACS Onset: 05/29/2013 Chondromalacia of patella Carlos Mracano MD, FACS Onset: 05/29/2013 Family history of malignant neoplasm James Summers, Onset: 2012 of gastrointestinal tract Silviano Social History Type Date Description Comments Sex Unknown Tobacco Use Start: Unknown Never Smoked Cigarettes ETOH Use Denies alcohol use Tobacco Use Start: Unknown Patient denies history of smoking Allergies, Adverse Reactions, Alerts Description No Known Drug Allergies Medications Active Medications SIG Qnty Indications Ordering Date Provider Multi-Day Vitamins Unknown Tablets Benztropine Mesylate Unknown 1mg Tablets Divalproex Sodium 1 tab by mouth Unknown 250mg twice a day Tablets DR Docusate Sodium take 1 capsule by Unknown 100mg mouth twice daily Capsules as needed for constipation Levocetirizine 1 by mouth every Unknown Dihydrochloride day 5mg Tablets Loratadine 1 by mouth every Unknown 10mg Capsules day Lorazepam 1 tabl by mouth Unknown 0.5mg Tablets twice a day as needed Omeprazole 1 by mouth every Unknown 20mg Capsules DR day Loperamide HCL take one capsule by Unknown 2mg Capsules mouth to start, then may take 1 capsule after each bout of diarrhea up to 8 caps a day Milk Of Magnesia 30 milliliters by Unknown 400mg/5ML mouth as needed Suspension Chlorhexidine Gluconate swish, gargle and Unknown spit every 2 hours 0.12% Solution prn. Triple Antibiotic apply to wound 3 x Unknown daily until healed [id number] Ointment Immunizations Description No Information Available Vital Signs Date Vital Result Comment 05/24/2018 10:32am BP Systolic Sitting Right Arm 111 mmHg BP Diastolic Sitting Right Arm 73 mmHg Heart Rate 90 /min Respiratory Rate 14 /min 02/07/2014 9:53am Weight 161.00 lb Results Description No Information Available Procedures Description No Information Available Medical Devices Description No Information Available Encounters Description No Information Available Assessments Date Code Description Provider 09/12/2019 R11.10 Vomiting, unspecified Dharmesh Kaba MD,FACS 09/12/2019 R10.9 Unspecified abdominal pain Dharmesh Kaba MD,FACS 09/12/2019 R19.7 Diarrhea, unspecified Dharmesh Kaba MD,FACS 09/12/2019 K56.2 Volvulus Dharmesh Kaba MD,FACS Plan of Treatment 05/24/2018 - James Summers M.D.Z12.11 Encounter for screening for malignant neoplasm of colonComments:[facility] might be a reasonable option in this situation.Colon cancer screening guidelines are clear. In individuals with no family history of colon cancer or colon polyps a colonoscopy that has beencompleted with a very well-prepped bowel in which there are no findings of adenomatous polyps shouldbe repeated in 10 years time he did not have a well- prepped bowel for his colonoscopy in 2013.High-quality double contrast enema is appropriate for screening in the absence of any significant findings the interval between contrast enemas should be 5 years. The report indicated that the contrast enemain places was poor.Both studies were attempted with the use of large volume prep. 5 years later appropriate colon cancer screening measure should be used and since 2012 now widespread availability of a commercial stool analysis service should be considered in pursued; will defer to Kai STOREY (his primary care software team leader) as to whether or not this would be a more reasonable option in [place]'s care versus returning here for traditional colon cancer screening effort with colonoscopy.When speakingwith the attendant and reviewing the information available given the absence of change in bowel habits , bloody stools, loss and weight, other clinical features there is the option to consider screeningoptions as noted above. Functional Status Functional Condition Comment Date Status Independent with all ADL's Active Mental Status Description No Information Available Referrals Description No Information Available
[2019-10-07 13:13] VITALS: BP 93/55
[2019-10-07 13:25] LABS: Influenza A Molecular POSITIVE (Negative)
--- NOTE | 2019-10-07 13:41 | UC ---
FLU HPI - HPI Summary HPI Summary: 58-year-old male who lives in a usp with flulike symptoms since yesterday. 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 Onset/Duration: Gradual Onset Severity Currently: Mild Severity Initially: Mild Pain Intensity: 8 Associated Signs & Symptoms: Positive: Fever, Myalgia, Nasal Congestion Related Hx: Possible Flu/Infectious Exposure - Allergy/Home Medications Allergies/Adverse Reactions: Allergies Allergy/AdvReac Type Severity Reaction Status Date / Time peanut Allergy Unknown Verified 10/07/19 13:19 Reaction Details Home Medications: Home Medications Docusate CAP* [Colace Cap*] 1 tab PO BID 10/07/19 [History Confirmed 10/07/19] Doxepin HCl 25 mg PO DAILY 10/07/19 [History Confirmed 10/07/19] Famotidine TAB* [Pepcid 20 MG TAB*] 20 mg PO BID 10/07/19 [History Confirmed ] Senna TAB 8.6 mg* [Senokot 8.6 mg TAB*] 2 tab PO BEDTIME 10/07/19 [History Confirmed 10/07/19] PMH/Surg Hx/FS Hx/Imm Hx Previously Healthy: Yes Cardiovascular History: Other - MVP - Surgical History Surgical History: Yes Surgery Procedure, Year, and Place: Root canal. laparutomy - Family History Known Family History: Positive: Unknown - pt has MR and pyschiatric issues- unsure of his FHx, Non-Contributory - Social History Occupation: Disabled Lives: [facility] Alcohol Use: None Substance Use Type: None Smoking Status (MU): Never Smoked Tobacco - Immunization History Most Recent Influenza Vaccination: 05/2015 Review of Systems All Other Systems Reviewed And Are Negative: Yes Constitutional: Positive: Fever, Chills ENT: Positive: Nasal Discharge Respiratory: Positive: Cough - Occasional dry cough. Musculoskeletal: Positive: Myalgia Is Patient Immunocompromised?: No Physical Exam Triage Information Reviewed: Yes Appearance: Well-Appearing, No Pain Distress, Well-Nourished Vital Signs: Initial Vital Signs Temp 100.2 F 10/07/19 13:05 Pulse 101 10/07/19 13:05 Resp 18 10/07/19 13:05 BP 93/55 10/07/19 13:05 Pulse Ox 100 10/07/19 13:05 Vital Signs Reviewed: Yes Eyes: Positive: Conjunctiva Clear ENT: Positive: Hearing grossly normal, Pharynx normal, TMs normal - Unable to visualize tympanic membranes because of cerumen in ear canal., Uvula midline Neck: Positive: Supple, Nontender, No Lymphadenopathy Respiratory: Positive: Lungs clear, Normal breath sounds, No respiratory distress, No accessory muscle use Cardiovascular: Positive: No Murmur, Pulses Normal, Brisk Capillary Refill, Tachycardia Musculoskeletal: Positive: Other: - Normal for this patient. Neurological: Positive: Alert Psychological Exam: Normal Skin Exam: Normal Flu Course/Dx - Course Course Of Treatment: Rapid influenza test: Positive for influenza A After talking with the caregiver and given the patient's good condition the caregiver opted not to have the patient treated with Tamiflu, the patient also agreed with this. - Differential Dx/Diagnosis Provider Diagnosis: Influenza A Discharge ED - Sign-Out/Discharge Documenting (check all that apply): Patient Departure All imaging exams completed and their final reports reviewed: No Studies - Discharge Plan Condition: Good Disposition: HOME Patient Education Materials: Influenza (DC) Referrals: Iain Wei PA [Primary Care Provider] - Additional Instructions: Increase fluids, rest, may give Tylenol every 4 hours and alternate with ibuprofen every 8 hours for fever or body aches. Definite follow-up with your primary care provider in 3 or 4 days if no improvement. - Billing Disposition and Condition Condition: GOOD Disposition: Home
== END 2019-10-07 13:47 | disposition home or self-care (01) ==
LOC: UCCORT 11:52
DX: J10.1 Influenza due to other identified influenza virus with other respiratory manifestations (principal); Z91.010 Allergy to peanuts
CPT/HCPCS: 87651; 99212; G0463

== ENCOUNTER 2019-10-16 21:18 | Emergency (ER) | payer MEDICARE ==
[2019-10-16] MEDS ORDERED: NS 0.9% 1000 ML** 1,000 ML IV ONE (21:42)
--- NOTE | 2019-10-16 21:48 | UC ---
General HPI - HPI Summary HPI Summary: 59-year-old male with history of Parkinson's disease who lives in a custodial comes in with fever weakness and cough. On October 07, 2019 patient was diagnosed with influenza and treated with Tamiflu for 5 days. Tonight at the custodial noticed the patient has fever he has generalized weakness where he can normally walk on his own but he cannot walk on his own tonight. Staff is also noticed chest congestion. Staff also reported the patient indicated he was nauseous. - History of Current Complaint Chief Complaint: UCGeneralIllness Stated Complaint: FEVER,COUGH,DX: FLU (HERE) Time Seen by Provider: 10/16/19 21:26 Pain Intensity: 0 - Allergy/Home Medications Allergies/Adverse Reactions: Allergies Allergy/AdvReac Type Severity Reaction Status Date / Time peanut Allergy Unknown Verified 10/16/19 21:39 Reaction Details Home Medications: Home Medications Polyethylene Glycol 1450 1 dose PO BID 09/27/14 [History Confirmed 10/07/19] Chlorhexidine MOUTHWASH 0.12%* [Peridex Mouth Wash 0.12%*] 1 dose PO DAILY 08/13 [History Confirmed 10/07/19] LevoCETirizine TAB (NF) [Xyzal TAB (NF)] 5 mg PO DAILY 12/09/15 [History Confirmed 10/07/19] Al Hydrox/Mg Hydrox/Simet LIQ* [Maalox Plus*] 30 ml PO Q4H PRN 06/10/16 [ History Confirmed 10/07/19] Carbidopa/Levodop 25/100 MG(*) [Sinemet 25/100 TAB(*)] 0.5 tab PO QID 06/10/16 [ History Confirmed 10/07/19] LORazepam TAB(*) [Ativan TAB(*)] 0.5 mg PO QID 06/10/16 [History Confirmed 10/07] Quetiapine Fumarate 50 mg PO BID 06/10/16 [History Confirmed 10/07/19] guaiFENesin 100 mg/5 ml LIQ [Robitussin*] 10 ml PO Q4H PRN 06/10/16 [History Confirmed 10/07/19] Benztropine TAB* [Cogentin TAB*] 1 mg PO BID 01/11/18 [History Confirmed ] Divalproex Sodium [Depakote] 250 mg PO BID 01/11/18 [History Confirmed 10/07/19] Loperamide CAP* [Imodium CAP*] 0 mg PO SEE INSTRUCTIONS PRN 01/11/18 [History Confirmed 09/12/19] Quetiapine Fumarate [Quetiapine 100 mg] 100 mg PO BEDTIME 01/11/18 [History Confirmed 10/07/19] Acetaminophen TAB* [Tylenol TAB*] 325 mg PO DAILY 09/12/19 [History Confirmed ] Aspirin 81 mg CHEW TAB* [Aspirin Low Dose TAB*] 81 mg PO DAILY 09/12/19 [ History Confirmed 10/07/19] Desloratadine 5 mg PO DAILY 09/12/19 [History Confirmed 10/07/19] Ibuprofen TAB* [Motrin TAB* 800 MG] 800 mg PO Q6H PRN 09/12/19 [History Confirmed 10/07/19] Mag Hydrox/Aluminum Hyd/Simeth [Mintox Suspension] 30 ml PO 09/12/19 [History] Docusate CAP* [Colace Cap*] 1 tab PO BID 10/07/19 [History Confirmed 10/07/19] Doxepin HCl 25 mg PO DAILY 10/07/19 [History Confirmed 10/07/19] Famotidine TAB* [Pepcid 20 MG TAB*] 20 mg PO BID 10/07/19 [History Confirmed ] Senna TAB 8.6 mg* [Senokot 8.6 mg TAB*] 2 tab PO BEDTIME 10/07/19 [History Confirmed 10/07/19] PMH/Surg Hx/FS Hx/Imm Hx Previously Healthy: Yes - Parkinsons GI/ History: Gastroesophageal Reflux - Surgical History Surgical History: Yes Surgery Procedure, Year, and Place: Root canal. laparutomy - Family History Known Family History: Positive: Unknown - pt has MR and pyschiatric issues- unsure of his FHx, Non-Contributory - Social History Alcohol Use: None Substance Use Type: None Smoking Status (MU): Never Smoked Tobacco - Immunization History Most Recent Influenza Vaccination: 05/2015 Review of Systems All Other Systems Reviewed And Are Negative: Yes Constitutional: Positive: Fever, Other - see hpi Skin: Positive: Negative Eyes: Positive: Negative ENT: Positive: Nasal Discharge Respiratory: Positive: Cough Cardiovascular: Positive: Negative Gastrointestinal: Positive: Negative Genitourinary: Positive: Other - see hpi Motor: Positive: Other - see hpi Neurovascular: Positive: Negative Musculoskeletal: Positive: Other: - see hpi Neurological/Mental Status: Positive: Weakness - see hpi Psychological: Positive: Negative Is Patient Immunocompromised?: No Physical Exam Triage Information Reviewed: Yes Appearance: No Pain Distress, Well-Nourished, Ill-Appearing - mild/moderate Vital Signs: Initial Vital Signs Temp 100.7 F 10/16/19 21:29 Pulse 125 10/16/19 21:29 Resp 24 10/16/19 21:29 BP 92/56 10/16/19 21:29 Pulse Ox 94 10/16/19 21:29 Vital Signs Reviewed: Yes Eye Exam: Normal Eyes: Positive: Conjunctiva Clear ENT: Positive: Nasal congestion Neck: Positive: Supple Respiratory: Positive: No respiratory distress, Rhonchi Cardiovascular: Positive: Tachycardia Abdomen Description: Positive: Nontender, Soft Bowel Sounds: Positive: Present Musculoskeletal: Positive: Other: - Patient is seated in a wheelchair he has parkinsonian movements. We did not attempt to have him stand. Neurological: Positive: Other: - Patient is seated in a wheelchair he has parkinsonian movements. Psychological: Positive: Other: - Normal response to staff. Skin Exam: Normal Course/Dx - Course Course Of Treatment: Patient is tachycardic hypotensive with a fever and tachypnea. Patient was transported to the emergency department by ambulance for sepsis evaluation and care. I discussed the case with the provider at the [facility] emergency department. - Diagnoses Provider Diagnosis: Sepsis Discharge ED - Sign-Out/Discharge Documenting (check all that apply): Patient Departure All imaging exams completed and their final reports reviewed: No Studies - Discharge Plan Condition: Stable Disposition: TRANS HIGHER LVL OF CARE FAC Referrals: Iain Wei PA [Primary Care Provider] - - Billing Disposition and Condition Condition: STABLE Disposition: Trans Higher Lvl of Care Fac
[2019-10-16 21:49] VITALS: BP 103/57
== END 2019-10-16 21:55 | disposition short-term general hospital (02) ==
LOC: UCCORT 21:18
DX: A41.9 Sepsis, unspecified organism (principal); G20 Parkinson's disease; K21.9 Gastro-esophageal reflux disease without esophagitis; R05 Cough; Z91.010 Allergy to peanuts; Z79.82 Long term (current) use of aspirin; Z79.899 Other long term (current) drug therapy
CPT/HCPCS: 99213; G0463